=== PATIENT | male | born 1975 | race Caucasian/White ===

== ENCOUNTER 2020-07-15 08:05 | Emergency (ER) | payer OTHER, SELFPAY ==
[2020-07-15 08:10] VITALS: BP 166/96; PULSE 75; RESP 22; TEMP 36.3; O2SAT 97; BMI 38.6
--- NOTE | 2020-07-15 08:23 | ED_ITS ---
HPI - Back Pain/Injury General: Chief Complaint: Back Pain/Injury Stated Complaint: LOWER BACK PAIN Time Seen by Provider: 07/15/20 08:06 History of Present Illness: HPI Narrative: 45-year-old male presents to clinic back pain that began over the last few days or wax and wane. Pain radiates into the left leg down to the toes. This only happens intermittently and is not present at the time of exam. MD elicited complaint: back pain Pertinent past history: prior back pain Onset (ago): day(s) Timing: intermittent and progressively worsening Severity: moderate Similar Symptoms Previously: Yes Quality: sharp Location: lumbar spine Radiation: left upper leg and left leg below the knee Exacerbating factors: movement and walking Relieving factors: immobilization and supine Associated symptoms: Reports numbness, tingling/numbness/burning and weakness; Deny abdominal pain, arthralgias, chills, change in bowel habits, difficulty walking, dysuria, fatigue, fecal incontinence, fever(s), hematuria, myalgias, nausea, syncope, urinary frequency, urinary urgency or vomiting Treatments prior to arrival: heat therapy and NSAIDS Review of Systems Const: Denies: fever(s), chills or fatigue ENMT: Denies: throat pain, ear or mastoid pain, nasal discharge or nasal congestion Card: Denies: syncope Resp: Denies: dyspnea, productive cough or non-productive cough GI: Denies: abdominal pain, nausea, vomiting, fecal incontinence or change in bowel habits : Denies: dysuria, urinary urgency or hematuria Skin/Breast: Denies: rash or pruritus Neuro: Denies: difficulty walking Physical Exam Const: COMMON NORMALS: no acute distress GENERAL APPEARANCE: cooperative and comfortable HENMT: COMMON NORMALS: normocephalic, atraumatic and hearing grossly normal bilaterally HEAD & SCALP: normocephalic and atraumatic Neck/C-Spine: COMMON NORMALS: no JVD Resp: COMMON NORMALS: normal respiratory effort, No retractions, No use of accessory muscles and clear to auscultation bilaterally AUSCULTATION: clear to auscultation bilaterally Cardio: COMMON NORMALS: no JVD, regular rate, regular rhythm and No murmurs present (Cardio) RATE: regular rate RHYTHM: regular rhythm GI: COMMON NORMALS: Soft to palpation and No hepatosplenomegaly present AUSCULTATION: Yes normoactive bowel sounds PALPATION: Yes Soft to palpation, No Tenderness to palpation present (GI), No Guarding due to palpation present (GI) and Yes No hepatosplenomegaly present Extremity: COMMON NORMALS: normal to inspection, capillary refill normal, no clubbing, cyanosis or edema, no calf tenderness and no pedal edema Neuro: OTHER: Straight leg raising test negative. Deep tendon reflexes slightly increased on the left leg compared to the right +3-4 on the left +24 on the right at the patellar tendons. Skin: COMMON NORMALS: no rashes or lesions noted GENERAL SKIN EXAM: no rashes or lesions noted Course Vital Signs: Vital signs: Vital Signs Temperature 97.3 F L 07/15/20 08:10 Pulse Rate 75 07/15/20 08:10 Respiratory Rate 22 H 07/15/20 08:10 Blood Pressure 166/96 07/15/20 08:10 Pulse Oximetry 97 07/15/20 08:10 MDM - Back Pain/Injury MDM Narrative: Medical decision making narrative: Atraumatic low back pain with intermittent radicular leg symptoms. Suspect sciatica. Patient given muscle relaxer and anti-inflammatory here discharged home with same follow-up with primary care doctor if not improving. Discharge Plan Discharge Patient Disposition: Home Clinical Impression: Strain of lumbar region Condition: Stable Prescriptions: New diclofenac sodium 75 mg tablet,delayed release (DR/EC) 75 mg PO Q12H PRN (Reason: pain) Qty: 20 RF: 0 tizanidine 4 mg capsule 4 mg PO Q6H PRN (Reason: muscle spasticity) Qty: 60 RF: 0 Discharge Orders: Discharge ED (Routine); Ordered 07/15/20 Ordered By: Nathan Clark Referrals: Baljeet Jean Baptiste MD [Primary Care Provider] - Discharge Diet: Usual diet Discharge Activity: Increase activity as tolerated Patient Instructions: Opioid Safety Activity Restrictions/Additional Instructions: If not improving you can return to the emergency room or follow-up with your primary care doctor for evaluation for physical therapy or potentially advanced imaging. 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
[2020-07-15] MEDS: orphenadrine 30 mg/mL Inj 2 mL 60 MG IM (08:34)
[2020-07-15 08:39] VITALS: BP 144/97; PULSE 91; RESP 20; O2SAT 99
== END 2020-07-15 08:39 | disposition home or self-care (01) ==
PROVIDERS: Emergency Provider Family Medicine; PCP Family Medicine
DX: S39.012A Strain of muscle, fascia and tendon of lower back, initial encounter (principal); X58.XXXA Exposure to other specified factors, initial encounter
CPT/HCPCS: 96372; 99283; J2360

== ENCOUNTER 2020-07-18 11:29 | Outpatient (CLI) | payer OTHER, SELFPAY ==
--- NOTE | 2020-07-18 11:39 | XR_ITS ---
WS: [id number] Lumbar spine, 3 views, 07/18/2020 Clinical Data: LUMBER RADICULOPATHY Comparison: None. Findings: No compression fractures or subluxation is seen. No disc space narrowing is seen. The transverse proc esses and SI joints are normal. XR/XR lumbar spine 2-3V* [id number] Impression: Negative lumbar spine.
== END 2020-07-18 11:30 | disposition home or self-care (01) ==
LOC: RAD 11:31
PROVIDERS: PCP Family Medicine; Visit Provider Family Medicine
DX: M54.16 Radiculopathy, lumbar region (principal)
CPT/HCPCS: 72100

== ENCOUNTER 2020-10-02 14:04 | Outpatient (CLI) | payer OTHER, SELFPAY ==
--- NOTE | 2020-10-02 14:29 | USCV_ITS ---
Manjinder Mondragon Age: 45 Gender: M : 1975 Exam Date: 10/02/2020 14:50 Ordering Phys: Baljeet Jean Baptiste MD Technologist: Jasmine Tavares Exam Location: [facility] [place] Indication: LLE PAIN, SWELLING HISTORY: Left lower extremity swelling and pain, new onset. No history DVT or trauma PROCEDURES: On the left side, the common femoral, superficial femoral, profunda femoral, popliteal, posterior tibial, greater saphenous veins, and the peroneal trunk were identified and interrogated in the standard fashion. . FINDINGS: Thrombus seen in left mid FV to popliteal vein, peroneal and extending into calf. Pop and peroneal appear occlusive. mid and distal FV have reduced flow. Left GSV, CFV, profunda, below knee GSV, PTVs appear to compress normally. CONCLUSIONS There is evidence of acute left lower extremity deep venous thrombosis. Dr. Jean Baptiste contacted at time of exam. Dr. Conchita Lopez DO (Electronically Signed) Final Date: 02 Oct 2020 15:47 S
== END 2020-10-02 14:05 | disposition home or self-care (01) ==
PROVIDERS: PCP Family Medicine; Visit Provider Family Medicine
DX: R60.0 Localized edema (principal); M79.605 Pain in left leg
CPT/HCPCS: 93971

== ENCOUNTER 2023-04-27 01:53 | Observation (INO) | payer SELFPAY ==
[2023-04-27] VITALS (18 sets, daily range): BP systolic 128–169; BP diastolic 76–98; PULSE 100–121; RESP 12–23; TEMP 36.1–36.7; O2SAT 94–98; BMI 38.6; BMI 38.3
[2023-04-27 03:13] LABS: Basophils # 0.1 10^3/uL (0.0-0.1); Basophils % 0.8 %; Eosinophils # 0.1 10^3/uL (0.0-0.8); Eosinophils % 0.7 %; Hematocrit 43.9 % (37-53); Lymphocytes # 1.5 10^3/uL (0.8-4.8); Lymphocytes % 13.7 %; Mean Corpuscular HGB Conc 33.5 g/dL (30-55); Mean Corpuscular Hemoglobin 30.2 pg (27-33); Mean Corpuscular Volume 90.3 fl (82-101); Mean Platelet Volume 8.9 fL (7.4-10.4); Monocytes # 0.7 10^3/uL (0.2-0.9); Monocytes % 6.6 %; Neutrophils # 8.75 10^3/uL (1.8-7.7); Neutrophils % 77.5 %; Nucleated Red Blood Cells % 0 %; Platelet Count 285 10^3/cmm (157-399); Red Blood Count 4.86 10^6/uL (3.85-5.65); Red Cell Distribution Width 13.5 % (12.1-15.1); White Blood Count 11.28 10^3/uL (3.29-11.43)
--- NOTE | 2023-04-27 03:16 | ECG_ITS ---
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 Measurements Intervals [place] Rate: 91 P: 65 CO: 112 QRS: 64 QRSD: 101 T: 69 QT: 365 QTc: 451 Interpretive Statements SINUS RHYTHM WITH SHORT CO INTERVAL No previous ECG available for comparison Electronically Signed On 04-27-2023 14:41:47 CHAR CONVEYOR TENDER by Alex Chatman M.D. [email or web address]
[2023-04-27 03:27] LABS: INR 1.11 (0.8-1.2)
[2023-04-27 03:28] LABS: Partial Thromboplastin Time 25.8 SECONDS (23.9-36.7)
[2023-04-27 03:56] LABS: Alanine Aminotransferase 32 U/L (0-41); Albumin Level 3.9 g/dL (3.5-5.2); Alkaline Phosphatase 73 U/L (40-130); Anion Gap 14.1 (5-19); Aspartate Amino Transferase 30 U/L (0-40); Blood Urea Nitrogen 22 mg/dL (6-20); Calcium 9.1 mg/dL (8.5-10.5); Carbon Dioxide 26 mmol/L (22-29); Chloride 97 mmol/L (98-107); Globulin 2.9 g/dL (1.3-4.6); Glomerular Filtration Rate 80.1 mL/min (90-130); Glucose 132 mg/dL (65-115); Osmolality Calculated 281 mOsm/kg (285-295); Potassium 4.1 mmol/L (3.5-5.1); Sodium 133 mmol/L (136-145); Total Bilirubin 0.5 mg/dL (0.15-1.2); Total Protein 6.8 g/dL (6.6-8.7)
--- NOTE | 2023-04-27 05:36 | CTR_ITS ---
PROCEDURE INFORMATION: Exam: CT Abdomen And Pelvis With Contrast Exam date and time: 04/27/2023 5:42 AM Age: 48 years old Clinical indication: Vomiting; Patient HX: Coffee ground emesis, PT denies any pain; Additional info: Abd pain TECHNIQUE: Imaging protocol: Computed tomography of the abdomen and pelvis with contrast. Radiation optimization: All CT scans at this facility use at least one of these dose optimization techniques: automated exposure control; mA and/or kV adjustment per patient size (includes targeted exams where dose is matched to clinical indication); or iterative reconstruction. Contrast material: OMNI 350; Contrast volume: 100 ml; Contrast route: INTRAVENOUS (IV); REPORTING DATA: Count of CT and Cardiac NM exams in prior 12 months: This patient has received 0 known CTs and 0 known cardiac nuclear medicine studies in the 12 months prior to the current study. COMPARISON: CR XR lumbar spine 2-3V* [id number] 07/18/2020 11:54 AM RADIATION DOSE METRICS: Total DLP (mGy-cm): 1276.43 FINDINGS: Liver: Marked hepatic steatosis. 23 cm hepatomegaly. Gallbladder and bile ducts: Normal. No calcified stones. No ductal dilation. Pancreas: Normal. No ductal dilation. Spleen: Normal. No splenomegaly. Adrenal glands: Normal. No mass. Kidneys and ureters: Normal. No hydronephrosis. Stomach and bowel: Unremarkable. No obstruction. No mucosal thickening. Appendix: No evidence of appendicitis. Intraperitoneal space: Unremarkable. No free air. No significant fluid collection. Vasculature: Unremarkable. No abdominal aortic aneurysm. Lymph nodes: Unremarkable. No enlarged lymph nodes. Urinary bladder: Unremarkable as visualized. Reproductive: Unremarkable as visualized. Bones/joints: Unremarkable. No acute fracture. Soft tissues: Unremarkable. CT/CT abdomen pelvis w con* [id number] IMPRESSION: Hepatic steatosis. Mild hepatomegaly.
--- NOTE | 2023-04-27 05:46 | ED_ITS ---
Documented by User: Torrey Card MD 05/19/23 07:54 HPI - GI Bleed 2 General: Chief complaint: GI Bleed Stated complaint: vomiting blood Time Seen by Provider: 04/27/23 03:01 History of Present Illness: 48-year-old male presents emergency depa rtment with complaints that he had a episode of dark brown/black coffee-ground emesis earlier at approximately 1700 yesterday. Patient reports anytime that he has been eating or drinking anything he has been having vomiting since that time. He states he does drink 8-10 beers per day and his last drink was approximately 3 PM yesterday. He states he does take a blood thinner for history of blood clots and pulmonary embolism. He denies shortness of breath dizziness or lightheaded feeling. Associated symptoms: Reports nausea and vomiting Review of Systems 2 General: Reports: 10 or more systems reviewed and unremarkable except in HPI and below GI: Reports: nausea, vomiting and coffee ground emesis PFSH ED 2 PFSH: Medical History (Updated 04/30/23 @ 00:00 by GABY Worthington) Hypothyroidism Depression with anxiety Hypertriglyceridemia Alcohol abuse Blood clot in leg Hx pulmonary embolism Family History Other Diabetes mellitus, type 2 Social History (Updated 04/27/23 @ 09:31 by Alvaro Bush MD) Smoking and tobacco/nicotine status: never used tobacco/nicotine Alcohol intake: current Physical Exam 2 Narrative: EXAM NARRATIVE: Constitutional: the patient appears well nourished and with normal development. Vital signs reviewed as documented. HENMT: Normocephalic, atraumatic. Extermal ears with normal appearance without drainage. Nose without drainage, normal appearance. Mucus membranes moist. Neck is supple, No jugular venous distension, trachea is midline, no appreciable carotid bruits. No lymphadenopathy. No meningeal signs. Flexion, extension and lateral rotation is without pain. Eyes: Pupils are equal, round, reactive to light and accommodation. No scleral icterus. Extra-ocular movement are intact. Thorax is symmetrical and with equal rise and fall with respirations. Resp: Lungs are clear to auscultation. No wheezes, rales, crackles or ronchi at present. Cardio: Regular rate and rhythm. Positive S1, S2. No appreciable murmurs, rubs or gallops. GI: Abdominal exam reveals normal bowel sounds to all quadrants. No organomegaly. No obvious palpable masses noted. No hepatomegally appreciated. Soft, nontender to palpation. Extremity: Extremities are non-edematous and both femoral and pedal pulses are 2+ and equal bilaterally. Moves all extremities well, sensation in all extremities. Neuro: Alert and oriented x4, person, place, time and situation. Cranial nerves II through XII are grossly intact, there is no focal neurological deficits that I can appreciate at present. Motor strength in the upper and lower extremities are equal and bilateral 5/5. Psych: Cooperative, calm, normal thought process, appropriate judgment. Skin: No lesions, rashes. No gross abnormalities noted. Back: Symmetrical, no obvious deformity, No CVA tenderness Course 2 Vital Signs: Vital signs: Vital Signs Temperature 98.1 F 04/29/23 14:15 Pulse Rate 91 04/29/23 14:15 Respiratory Rate 18 04/29/23 14:15 Blood Pressure 122/80 04/29/23 14:15 Pulse Oximetry 100 04/29/23 14:15 Oxygen Delivery Me thod Room Air 04/29/23 12:02 Oxygen Flow Rate 2 04/29/23 11:52 MDM - GI Bleed Medical Decision Making Physical exam completed and documented, I will obtain laboratory evaluation to include a CBC, CMP, lipase, urinalysis, and a CT scan of the patient's abdomen pelvis to evaluate for possible differential diagnosis of bowel obstruction, incarcerated hernia, abdominal wall strain, abdominal wall hematoma, constipation. I will provide the patient IV access and IV fluid as well as a CT scan abdomen pelvis with contrast for evaluation for possible colitis, acute appendicitis, diverticulitis. Transfer of care to Dr. Clark we are currently awaiting CT scan results vital signs are stable at present. I did advise the patient that Dr. Clark would be the physician taking over his care. Medical Records I reviewed the patient's medical records. Lab Data I reviewed the patient's lab results. 04/29/23 05:42 04/29/23 05:42 Radiology Impressions Abdomen/Pelvis CT 04/27/23 05:36 IMPRESSION: Hepatic steatosis. Mild hepatomegaly. Laboratory Results WBC 11.28 10^3/uL (3.29-11.43) 04/27/23 03:08 RBC 4.86 10^6/uL (3.85-5.65) 04/27/23 03:08 Hgb 14.70 g/dL (11.27-16.99) 04/27/23 03:08 Hct 43.9 % (37-53) 04/27/23 03:08 MCV 90.3 fl (82-101) 04/27/23 03:08 MCH 30.2 pg (27-33) 04/27/23 03:08 MCHC 33.5 g/dL (30-55) 04/27/23 03:08 RDW 13.5 % (12.1-15.1) 04/27/23 03:08 Plt Count 285 10^3/cmm (157-399) 04/27/23 03:08 MPV 8.9 fL (7.4-10.4) 04/27/23 03:08 Neut % (Auto) 77.5 % 04/27/23 03:08 Lymph % (Auto) 13.7 % 04/27/23 03:08 Cooke % (Auto) 6.6 % 04/27/23 03:08 Eos % (Auto) 0.7 % 04/27/23 03:08 Baso % (Auto) 0.8 % 04/27/23 03:08 Neut # (Auto) 8.75 10^3/uL (1.8-7.7) H 04/27/23 03:08 Lymph # (Auto) 1.5 10^3/uL (0.8-4.8) 04/27/23 03:08 Cooke # (Auto) 0.7 10^3/uL (0.2-0.9) 04/27/23 03:08 Eos # (Auto) 0.1 10^3/uL (0.0-0.8) 04/27/23 03:08 Baso # (Auto) 0.1 10^3/uL (0.0-0.1) 04/27/23 03:08 Nucleated RBC % (auto) 0 % 04/27/23 03:08 Nucleated RBCs # 0.0 /100WBC 04/27/23 03:08 PT 14.70 SECONDS (12.1-14.9) 04/27/23 03:08 INR 1.11 (0.8-1.2) 04/27/23 03:08 APTT 25.8 SECONDS (23.9-36.7) 04/27/23 03:08 Sodium 133 mmol/L (136-145) L 04/27/23 03:35 Potassium 4.1 mmol/L (3.5-5.1) 04/27/23 03:35 Chloride 97 mmol/L (98-107) L 04/27/23 03:35 Carbon Dioxide 26 mmol/L (22-29) 04/27/23 03:35 Anion Gap 14.1 (5-19) 04/27/23 03:35 BUN 22 mg/dL (6-20) H 04/27/23 03:35 Creatinine 1.0 mg/dL (0.7-1.2) 04/27/23 03:35 GFR Calculation 80.1 mL/min (90-130) L 04/27/23 03:35 Glucose 132 mg/dL (65-115) H 04/27/23 03:35 Calculated Osmolality 281 mOsm/kg (285-295) L 04/27/23 03:35 Calcium 9.1 mg/dL (8.5-10.5) 04/27/23 03:35 Total Bilirubin 0.5 mg/dL (0.15-1.2) 04/27/23 03:35 AST 30 U/L (0-40) 04/27/23 03:35 ALT 32 U/L (0-41) 04/27/23 03:35 Alkaline Phosphatase 73 U/L (40-130) 04/27/23 03:35 Total Protein 6.8 g/dL (6.6-8.7) 04/27/23 03:35 Albumin 3.9 g/dL (3.5-5.2) 04/27/23 03:35 Globulin 2.9 g/dL (1.3-4.6) 04/27/23 03:35 TSH 4.60 uIU/mL (0.27-4.20) H 04/27/23 03:35 Discharge Plan Discharge Patient Disposition: Placed in Observation Admit Provider: Tristin Higginbotham Clinical Impression: Upper gastrointestinal hemorrhage, Hx pulmonary embolism, Alcohol abuse Discharge Diet: Usual diet Discharge Activity: Increase activity as tolerated Sign Out Sign Out Data: Patient Sign Out occurred on 04/27/23 at 06:03. Patient's care was discussed, and care was transferred from Torrey Card MD to Nathan Clark DO. Coding Level of Care Code ED Premium Cancellation Clerk for Chg Fwd Documented by User: Nathan Clark DO 04/27/23 06:46 HPI - GI Bleed 2 General: Chief complaint: GI Bleed Stated complaint: vomiting blood Time Seen by Provider: 04/27/23 03:01 [facility] ED 2 [facility]: Medical History (Updated 04/30/23 @ 00:00 by GABY Worthington) Hypothyroidism Depression with anxiety Hypertriglyceridemia Alcohol abuse Blood clot in leg Hx pulmonary embolism Family History Other Diabetes mellitus, type 2 Social History (Updated 04/27/23 @ 09:31 by Alvaro Bush MD) Smoking and tobacco/nicotine status: never used tobacco/nicotine Alcohol intake: current Course 2 Vital Signs: Vital signs: Vital Signs Temperature 98.1 F 04/29/23 14:15 Pulse Rate 91 04/29/23 14:15 Respiratory Rate 18 04/29/23 14:15 Blood Pressure 122/80 04/29/23 14:15 Pulse Oximetry 100 04/29/23 14:15 Oxygen Delivery Me thod Room Air 04/29/23 12:02 Oxygen Flow Rate 2 04/29/23 11:52 MDM - GI Bleed Medical Decision Making Physical exam completed and documented, I will obtain laboratory evaluation to include a CBC, CMP, lipase, urinalysis, and a CT scan of the patient's abdomen pelvis to evaluate for possible differential diagnosis of bowel obstruction, incarcerated hernia, abdominal wall strain, abdominal wall hematoma, constipation. I will provide the patient IV access and IV fluid as well as a CT scan abdomen pelvis with contrast for evaluation for possible colitis, acute appendicitis, diverticulitis. Transfer of care to Dr. Clark we are currently awaiting CT scan results vital signs are stable at present. I did advise the patient that Dr. Clark would be the physician taking over his care. 04/27/2023 6:45 AM Care assumed at change of shift. The CT reviewed no significant findings hemoglobin stable patient slightly tachycardic and BUN slightly elevated has not had any further episodes of coffee-ground emesis and has not had any hematemesis throughout. Patient be given IV Protonix and banana bag started on the [facility] protocol hold Eliquis. In talking to the patient is precipitating cause of DVT PE 3 years ago was unknown. Discussed with hospitalist will place on observation consult general surgery for EGD. Patient has not had previous upper GI's or endoscopies. No history of upper GI bleed no known history of esophageal varices. Lab Data 04/29/23 05:42 04/29/23 05:42 Radiology Impressions Abdomen/Pelvis CT 04/27/23 05:36 IMPRESSION: Hepatic steatosis. Mild hepatomegaly. Laboratory Results WBC 11.28 10^3/uL (3.29-11.43) 04/27/23 03:08 RBC 4.86 10^6/uL (3.85-5.65) 04/27/23 03:08 Hgb 14.70 g/dL (11.27-16.99) 04/27/23 03:08 Hct 43.9 % (37-53) 04/27/23 03:08 MCV 90.3 fl (82-101) 04/27/23 03:08 MCH 30.2 pg (27-33) 04/27/23 03:08 MCHC 33.5 g/dL (30-55) 04/27/23 03:08 RDW 13.5 % (12.1-15.1) 04/27/23 03:08 Plt Count 285 10^3/cmm (157-399) 04/27/23 03:08 MPV 8.9 fL (7.4-10.4) 04/27/23 03:08 Neut % (Auto) 77.5 % 04/27/23 03:08 Lymph % (Auto) 13.7 % 04/27/23 03:08 Cooke % (Auto) 6.6 % 04/27/23 03:08 Eos % (Auto) 0.7 % 04/27/23 03:08 Baso % (Auto) 0.8 % 04/27/23 03:08 Neut # (Auto) 8.75 10^3/uL (1.8-7.7) H 04/27/23 03:08 Lymph # (Auto) 1.5 10^3/uL (0.8-4.8) 04/27/23 03:08 Cooke # (Auto) 0.7 10^3/uL (0.2-0.9) 04/27/23 03:08 Eos # (Auto) 0.1 10^3/uL (0.0-0.8) 04/27/23 03:08 Baso # (Auto) 0.1 10^3/uL (0.0-0.1) 04/27/23 03:08 Nucleated RBC % (auto) 0 % 04/27/23 03:08 Nucleated RBCs # 0.0 /100WBC 04/27/23 03:08 PT 14.70 SECONDS (12.1-14.9) 04/27/23 03:08 INR 1.11 (0.8-1.2) 04/27/23 03:08 APTT 25.8 SECONDS (23.9-36.7) 04/27/23 03:08 Sodium 133 mmol/L (136-145) L 04/27/23 03:35 Potassium 4.1 mmol/L (3.5-5.1) 04/27/23 03:35 Chloride 97 mmol/L (98-107) L 04/27/23 03:35 Carbon Dioxide 26 mmol/L (22-29) 04/27/23 03:35 Anion Gap 14.1 (5-19) 04/27/23 03:35 BUN 22 mg/dL (6-20) H 04/27/23 03:35 Creatinine 1.0 mg/dL (0.7-1.2) 04/27/23 03:35 GFR Calculation 80.1 mL/min (90-130) L 04/27/23 03:35 Glucose 132 mg/dL (65-115) H 04/27/23 03:35 Calculated Osmolality 281 mOsm/kg (285-295) L 04/27/23 03:35 Calcium 9.1 mg/dL (8.5-10.5) 04/27/23 03:35 Total Bilirubin 0.5 mg/dL (0.15-1.2) 04/27/23 03:35 AST 30 U/L (0-40) 04/27/23 03:35 ALT 32 U/L (0-41) 04/27/23 03:35 Alkaline Phosphatase 73 U/L (40-130) 04/27/23 03:35 Total Protein 6.8 g/dL (6.6-8.7) 04/27/23 03:35 Albumin 3.9 g/dL (3.5-5.2) 04/27/23 03:35 Globulin 2.9 g/dL (1.3-4.6) 04/27/23 03:35 TSH 4.60 uIU/mL (0.27-4.20) H 04/27/23 03:35 All radiology interpretation(s) finalized by discharge Discharge Plan Discharge Patient Disposition: Placed in Observation Admit Provider: Tristin Higginbotham Clinical Impression: Upper gastrointestinal hemorrhage, Hx pulmonary embolism, Alcohol abuse Discharge Diet: Usual diet Discharge Activity: Increase activity as tolerated Sign Out Sign Out Data: Patient Sign Out occurred on 04/27/23 at 06:03. Patient's care was discussed, and care was transferred from Torrey Card MD to Nathan Clark DO. Coding Level of Care Code ED Premium Cancellation Clerk for Myles Wright
[2023-04-27] MEDS: iohexol 350 mg/mL 500 mL Btl (per mL) IV (05:47)
[2023-04-27] MEDS: pantoprazole 40 mg SDV 80 MG IVP (06:58)
[2023-04-27] MEDS: folic acid 1 MG, multivitamin inj 10 ML, thiamine 100 MG in sodium chloride 0.9% 1,000 ML 252.8 MG IV (06:59)
--- NOTE | 2023-04-27 09:09 | P.CONIM_ITS ---
Providers/Reason For Consult 2 Consulting Physician/Specialty*: George/emergency room physician Reason for Consult*: Upper GI hemorrhage Requesting Physician: George Attending Physician: Tristin Higginbotham MD Primary Care Provider: SHAILA Kemp History of Present Illness History of Present Illness Manjinder Mondragon is a 48 year old male Who presents with coffee-ground emesis. The patient had a couple episodes of emesis where he vomited food and bile this was followed by coffee-ground emesis. The episode was not described as violent. The patient's had no evidence of this previously. The patient states that he drinks 6-8 beers per day. He has been doing this for more than 2 decades. The patient states that he is never had the shakes or alcohol withdrawal symptoms. The vomiting started greater than 24 hours ago. The patient is not anything to eat or drink within the last 8 hours. Although the patient did say that he had a small sip of water. To complicate matters the patient has a history of DVT. The patient also had a pulmonary embolism. The pulmonary embolism was not provoked. The exact etiology of this pulmonary embolism is unclear. The patient's been on apixaban since then. The patient denies dizziness. The patient denies constipation or diarrhea. The patient had no fever or chills. Review of Systems 2 General: Reports: 10 or more systems reviewed and unremarkable except in HPI and below Medications/Allergies Home Medications Medication Instructions Recorded Confirmed Last Taken Type apixaban 5 mg tablet (Eliquis) 5 mg PO BID #60 tabs 01/29/23 04/27/23 04/26/23 Rx cholecalciferol (vitamin D3) 25 25 mcg PO QAM 04/27/23 04/27/23 04/26/23 History mcg (1,000 unit) chewable tablet (Vitamin D3) duloxetine 30 mg capsule,delayed 30 mg PO QAM 04/27/23 04/27/23 04/26/23 History release fenofibrate nanocrystallized 48 mg 48 mg PO QPM 04/27/23 04/27/23 04/26/23 History tablet levothyroxine 25 mcg tablet 25 mcg PO QAM 04/27/23 04/27/23 04/26/23 History ropinirole 2 mg tablet 2 mg PO QPM 04/27/23 04/27/23 04/26/23 History Allergies Allergy/AdvReac Type Severity Reaction Status Date / Time enoxaparin [From Lovenox] Allergy Unknown Verified 04/27/23 03:58 Current Medications Generic Name Dose Route Start Last Admin Trade Name Rose PRN Reason Stop Dose Admin Folic Acid 1 mg/ Multivitamins 1,011.2 mls @ 252.8 mls/hr 04/27/23 06:33 04/27/23 06:59 10 ml/ Thiamine HCl 100 mg/ IV 04/27/23 10:32 252.8 mls/hr Sodium Chloride ONCE ONE Administration PFSH Acute 2 PFSH: Medical History Blood clot in leg Hx pulmonary embolism Social History Smoking and tobacco/nicotine status: never used tobacco/nicotine Vitals/I&O/Wt Last Vital Signs Temp 97.9 F 04/27/23 02:48 Pulse 119 H 04/27/23 07:43 Resp 20 H 04/27/23 07:43 BP 130/84 04/27/23 07:43 Pulse Ox 96 04/27/23 07:43 O2 Del Method Room Air 04/27/23 08:11 Weight last 48 hrs Weight 283 lb Weight 285 lb Physical Exam 2 Narrative: Generally: Morbidly obese male. Appears to be in no acute distress HEENT: Normocephalic atraumatic, pupils equal round reactive to light Neck: Is free range of motion. There is no masses that I can appreciate. The patient's trachea is midline. Lungs: Clear to auscultation. Chest: Nontender. The patient sternum is stable. There is no palpable deformities in the chest wall. Heart: Regular rate and rhythm without murmurs. There is no S3 or S4. There is no rubs clicks or JVD noted. Abdomen: Morbidly obese, soft, nontender. There is no masses that I can appreciate. There is no hepatosplenomegaly. There are no hernias that I can appreciate. Pelvis: Is both stable to both AP and medial compression Extremities: There is no obvious deformities or point tenderness suggestive of fracture. The patient has no clubbing cyanosis or edema. Neurologic: The patient is awake, alert, oriented x 3. The patient's Alysia Coma Scale is 15. The patient moves all 4 extremities without difficulty. The patient sensations intact to light touch throughout. Data 04/27/23 03:08 04/27/23 03:35 Attestation for Other Data: I personally reviewed and interpreted the following: (Labs and x-rays.) A&P Assessment and plan (1) Upper gastrointestinal hemorrhage: This patient is admitted for an upper GI hemorrhage. The patient's hemoglobin is stable. The patient's vital signs are stable. Will schedule patient for an EGD. The risk and benefits of this procedure been explained to the patient. The patient seems to understand the risk and benefits and would like to proceed. The consents been placed on the chart. Coding Level of Care Code 64053 Diagnoses Upper gastrointestinal hemorrhage K92.2
--- NOTE | 2023-04-27 09:28 | P.HP_ITS ---
Providers/Chief Complaint 2 Admitting Physician: Tristin Higginbotham MD Primary Care Provider: SHAILA Kemp Chief Complaint: vomiting blood History of Present Illness Manjinder Mondragon is a 48 year old male who reports he started vomiting yesterday afternoon around 4 5 PM. He reports some abdominal discomfort in his upper abdomen. He reports the first several emesis did not demonstrate any dark material, but subsequent emesis demonstrated dark coffee-ground material. He denies any bright red blood. He has had no melena. He reports he feels better now and does not have abdominal pain. No history of fever. Denies any significant anti-inflammatory use. Does report he drinks 6-8 beers a day. Review of Systems 2 General: Reports: 10 or more systems reviewed and unremarkable except in HPI and below Card: Denies: chest pain Resp: Denies: dyspnea GI: Reports: abdominal pain, nausea, vomiting and coffee ground emesis; Denies: hematemesis, hematochezia or melena Medications/Allergies Home Medications Medication Instructions Recorded Confirmed Last Taken Type apixaban 5 mg tablet (Eliquis) 5 mg PO BID #60 tabs 01/29/23 04/27/23 04/26/23 Rx cholecalciferol (vitamin D3) 25 25 mcg PO QAM 04/27/23 04/27/23 04/26/23 History mcg (1,000 unit) chewable tablet (Vitamin D3) duloxetine 30 mg capsule,delayed 30 mg PO QAM 04/27/23 04/27/23 04/26/23 History release fenofibrate nanocrystallized 48 mg 48 mg PO QPM 04/27/23 04/27/23 04/26/23 History tablet levothyroxine 25 mcg tablet 25 mcg PO QAM 04/27/23 04/27/23 04/26/23 History ropinirole 2 mg tablet 2 mg PO QPM 04/27/23 04/27/23 04/26/23 History Allergies Allergy/AdvReac Type Severity Reaction Status Date / Time enoxaparin [From Lovenox] Allergy Unknown Verified 04/27/23 03:58 PFSH Acute 2 PFSH: Medical History (Updated 04/27/23 @ 09:31 by Alvaro Bush MD) Hypothyroidism Depression with anxiety Hypertriglyceridemia Alcohol abuse Blood clot in leg Hx pulmonary embolism Family History Other Diabetes mellitus, type 2 Social History (Updated 04/27/23 @ 09:31 by Alvaro Bush MD) Smoking and tobacco/nicotine status: never used tobacco/nicotine Alcohol intake: current Vitals/I&O/Wt Last Vital Signs Temp 97.9 F 04/27/23 02:48 Pulse 119 H 04/27/23 07:43 Resp 20 H 04/27/23 07:43 BP 130/84 04/27/23 07:43 Pulse Ox 96 04/27/23 07:43 O2 Del Method Room Air 04/27/23 08:11 Weight last 48 hrs Weight 128.367 kg Weight 129.274 kg Physical Exam 2 Narrative: General exam is a white male, no distress. Heart rate is noted to be somewhat high. HEENT: Atraumatic normocephalic. Oropharynx clear Neck is supple no lymphadenopathy thyromegaly Cardiovascular regular rate and rhythm, no murmur Lungs clear no wheezing or crackles Abdomen is soft currently. No significant tenderness. No obvious organomegaly exams deferred Extremities no cyanosis clubbing edema Skin no rash Neuro no obvious focal deficits Data 04/27/23 03:08 04/27/23 03:35 Other Labs: INR is normal LFTs are normal Albumin, calcium normal Lipase not done. However, he is not currently having any abdominal pain. CT abdomen and pelvis demonstrates hepatic steatosis and hepatomegaly EKG demonstrates sinus rhythm with a rate around 90, normal axis, no acute changes A&P Assessment and plan (1) Upper gastrointestinal hemorrhage: Patient presents with history of coffee-ground emesis, multiple times at home. Differential includes alcoholic gastritis, ulcer, Sherry-Damian tear, less likely varices. Repeat hemoglobin later today Surgery consult for EGD Protonix 40 mg IV every 12 hours Nausea control N.p.o. until EGD Avoid all NSAIDs Counseled on stopping all alcohol Hydration (2) Alcohol abuse: I think it is likely the patient will have alcohol withdrawal Counseled on stopping all alcohol [facility] protocol Plan Hypothyroidism, check TSH other medical problems as outlined in past medical history Full code SCD's for DVT proph, no anticoag secondary to GI bleed Attestations 2 Medical Necessity Statement*: Will require less than 2 midnight stay for evaluation and treatment of upper GI bleeding Coding Level of Care Code Acute Code for Chg Fwd Diagnoses Upper gastrointestinal hemorrhage K92.2 Alcohol abuse F10.10
[2023-04-27 09:42] LABS: Basophils # 0.1 10^3/uL (0.0-0.1); Basophils % 0.5 %; Eosinophils % 0.1 %; Hematocrit 38.2 % (37-53); Lymphocytes # 2.8 10^3/uL (0.8-4.8); Lymphocytes % 17.9 %; Mean Corpuscular Hemoglobin 30.7 pg (27-33); Mean Corpuscular Volume 92.9 fl (82-101); Mean Platelet Volume 9.2 fL (7.4-10.4); Monocytes # 1.2 10^3/uL (0.2-0.9); Monocytes % 7.9 %; Neutrophils # 11.31 10^3/uL (1.8-7.7); Neutrophils % 72.4 %; Nucleated Red Blood Cells % 0 %; Platelet Count 328 10^3/cmm (157-399); Red Blood Count 4.11 10^6/uL (3.85-5.65); Red Cell Distribution Width 13.5 % (12.1-15.1); White Blood Count 15.61 10^3/uL (3.29-11.43)
--- NOTE | 2023-04-27 09:44 | P.ANESASSM_ITS ---
Pre-Anesthetic Assessment Height/Weight: Height 1.83 m Weight 128.367 kg Temp Pulse Resp BP Pulse Ox O2 Del Method 97.9 F 119 H 20 H 130/84 96 Room Air 04/27/23 02:48 04/27/23 07:43 04/27/23 07:43 04/27/23 07:43 04/27/23 07:43 04/27/23 08:11 Preop Diagnosis: upper GI hemorrhage Operation Date: 04/27/23 10:00 Proposed Procedures p EGD(Not Applicable) - Francisco Banerjee MD Familial anesthetic complications: none Was Beta Asim taken within 24 hours: N/A Was Clonidine taken within 24 hours: N/A Social Alcohol (abuse) and Tobacco Exam alert, oriented x 3, clear to auscultation bilaterally and regular rate & rhythm Airway Submandibular: within normal limits Cervical ROM: within normal limits Mallampati: Class III Dentition: full Pulmonary None reported CV/HEM Deep Vein Thrombosis (history) None reported Hepatic None reported GI Gastroesophageal Reflux Disease Metabolic Hyperlipidemia, Morbid Obesity and Thyroid Disease [facility] [place], [place] None reported Neuropsych Anxiety Anesthetic Plan ASA status: 3 Anesthesia: General Medications/Allergies Home Medications Medication Instructions Recorded Confirmed Last Taken Type apixaban 5 mg tablet (Eliquis) 5 mg PO BID #60 tabs 01/29/23 04/27/23 04/26/23 Rx cholecalciferol (vitamin D3) 25 25 mcg PO QAM 04/27/23 04/27/23 04/26/23 History mcg (1,000 unit) chewable tablet (Vitamin D3) duloxetine 30 mg capsule,delayed 30 mg PO QAM 04/27/23 04/27/23 04/26/23 History release fenofibrate nanocrystallized 48 mg 48 mg PO QPM 04/27/23 04/27/23 04/26/23 History tablet levothyroxine 25 mcg tablet 25 mcg PO QAM 04/27/23 04/27/23 04/26/23 History ropinirole 2 mg tablet 2 mg PO QPM 04/27/23 04/27/23 04/26/23 History Allergies Allergy/AdvReac Type Severity Reaction Status Date / Time enoxaparin [From Lovenox] Allergy Unknown Verified 04/27/23 03:58 Current Medications Generic Name Dose Route Start Last Admin Trade Name Freq PRN Reason Stop Dose Admin Folic Acid 1 mg/ Multivitamins 1,011.2 mls @ 252.8 mls/hr 04/27/23 06:33 04/27/23 06:59 10 ml/ Thiamine HCl 100 mg/ IV 04/27/23 10:32 252.8 mls/hr Sodium Chloride ONCE ONE Administration [facility] Anesthesia Medical History (Updated 04/27/23 @ 09:31 by Alvaro Bush MD) Hypothyroidism Depression with anxiety Hypertriglyceridemia Alcohol abuse Blood clot in leg Hx pulmonary embolism Family History Other Diabetes mellitus, type 2 Social History (Updated 04/27/23 @ 09:31 by Alvaro Bush MD) Smoking and tobacco/nicotine status: never used tobacco/nicotine Alcohol intake: current Data Anesthesia 04/27/23 09:29 04/27/23 03:35 Short CBC 04/27/23 04/27/23 Range/Units 03:08 09:29 WBC 11.28 15.61 H (3.29-11.43) 10^3/uL Hgb 14.70 12.60 (11.27-16.99) g/dL Hct 43.9 38.2 (37-53) % MCV 90.3 92.9 (82-101) fl Plt Count 285 328 (157-399) 10^3/cmm Neut % (Auto) 77.5 72.4 % Neut # (Auto) 8.75 H 11.31 H (1.8-7.7) 10^3/uL BMP 04/27/23 04/27/23 03:08 03:35 Sodium Cancelled 133 L Potassium Cancelled 4.1 Chloride Cancelled 97 L Carbon Dioxide Cancelled 26 BUN Cancelled 22 H Creatinine Cancelled 1.0 Glucose Cancelled 132 H Calcium Cancelled 9.1 Liver Function 04/27/23 04/27/23 Range/Units 03:08 03:35 Total Bilirubin Cancelled 0.5 AST Cancelled 30 ALT Cancelled 32 Alkaline Phosphatase Cancelled 73 Albumin Cancelled 3.9 Coags 04/27/23 03:08 PT 14.70 INR 1.11 APTT 25.8 Cardiac Studies: 2 No Data to Display
[2023-04-27] MEDS: sodium chloride 0.9% 1,000 ML 30 ML IV (09:48)
--- NOTE | 2023-04-27 11:02 | ANE.PACU2 ---
Inpatient post-anesthesia follow up: Airway intact: Yes Vital signs: Temperature 97 F Pulse Rate 102 Respiratory Rate 16 Blood Pressure 136/86 Pulse Oximetry 94 Oxygen Delivery Me thod Nasal Cannula Oxygen Flow Rate 4 Fraction of Inspir ed Oxygen Hydration adequate: Yes Nausea and vomiting: No Pain level: 2 Mental status: Baseline
[2023-04-27] MEDS: sodium chloride 0.9% 1,000 ML 150 ML IV ×2 (11:16→18:34)
[2023-04-27] MEDS: thiamine 100 mg Tablet PO (12:36)
[2023-04-27] MEDS: folic acid 1 mg Tablet PO (12:37)
[2023-04-27] MEDS: multivitamin therapeutic Tablet 1 TAB PO (12:37)
[2023-04-27 17:31] LABS: Hematocrit 34.1 % (37-53)
[2023-04-27] MEDS: pantoprazole 40 mg SDV IVP (17:38)
[2023-04-27] MEDS: ropinirole 2 mg Tablet PO (23:06)
[2023-04-28] VITALS (10 sets, daily range): BP systolic 113–140; BP diastolic 68–79; PULSE 82–105; RESP 15–17; TEMP 36.4–37; O2SAT 94–100
[2023-04-28] MEDS: sodium chloride 0.9% 1,000 ML 150 ML IV ×3 (00:42→16:50)
[2023-04-28 06:19] LABS: Basophils # 0.1 10^3/uL (0.0-0.1); Basophils % 0.3 %; Eosinophils % 0.1 %; Hematocrit 27.2 % (37-53); Lymphocytes # 2.2 10^3/uL (0.8-4.8); Lymphocytes % 14.1 %; Mean Corpuscular HGB Conc 32.7 g/dL (30-55); Mean Corpuscular Volume 94.8 fl (82-101); Mean Platelet Volume 8.8 fL (7.4-10.4); Monocytes # 1.1 10^3/uL (0.2-0.9); Monocytes % 7.4 %; Neutrophils # 11.88 10^3/uL (1.8-7.7); Neutrophils % 76.6 %; Nucleated Red Blood Cells % 0 %; Platelet Count 222 10^3/cmm (157-399); Red Blood Count 2.87 10^6/uL (3.85-5.65); Red Cell Distribution Width 14.2 % (12.1-15.1)
[2023-04-28] MEDS: pantoprazole 40 mg SDV IVP ×2 (06:25→18:03)
[2023-04-28 06:39] LABS: Alanine Aminotransferase 20 U/L (0-41); Albumin Level 3.3 g/dL (3.5-5.2); Alkaline Phosphatase 47 U/L (40-130); Anion Gap 10.2 (5-19); Aspartate Amino Transferase 18 U/L (0-40); Blood Urea Nitrogen 23 mg/dL (6-20); Calcium 8.1 mg/dL (8.5-10.5); Carbon Dioxide 27 mmol/L (22-29); Chloride 107 mmol/L (98-107); Globulin 2.1 g/dL (1.3-4.6); Glomerular Filtration Rate 71.8 mL/min (90-130); Glucose 115 mg/dL (65-115); Magnesium 2.3 mg/dL (1.7-2.3); Osmolality Calculated 295 mOsm/kg (285-295); Potassium 4.2 mmol/L (3.5-5.1); Sodium 140 mmol/L (136-145); Total Bilirubin 0.3 mg/dL (0.15-1.2); Total Protein 5.4 g/dL (6.6-8.7)
[2023-04-28] MEDS: multivitamin therapeutic Tablet 1 TAB PO (08:32)
[2023-04-28] MEDS: thiamine 100 mg Tablet PO (08:32)
[2023-04-28] MEDS: folic acid 1 mg Tablet PO (08:32)
[2023-04-28] MEDS: levothyroxine 25 mcg Tablet PO (08:44)
[2023-04-28] MEDS: duloxetine 30 mg Capsule PO (08:44)
[2023-04-28] MEDS: ondansetron 2 mg/ML SDV 2 mL 4 MG IVP (10:37)
--- NOTE | 2023-04-28 12:53 | P.PN_ITS ---
Subjective 2 Subjective: Manjinder reports no vomiting since yesterday. Denies seeing any blood in his stool or having any black or tarry stool. Denies abdominal pain. Medications: Reviewed: Yes Vitals/I&O/Wt Last Vital Signs Temp 97.8 F 04/28/23 12:00 Pulse 91 04/28/23 12:00 Resp 17 04/28/23 12:00 BP 132/77 04/28/23 12:00 Pulse Ox 100 04/28/23 12:00 O2 Del Method Room Air 04/28/23 12:00 O2 Flow Rate 4 04/27/23 13:47 04/27/23 04/28/23 04/28/23 22:59 06:59 14:59 Intake Total 1000 / 2711.2 920 / 3631.2 1700 / 1700 Balance 1000 / 2711.2 920 / 3631.2 1700 / 1700 Weight last 48 hrs Weight 132.052 kg Weight 128.367 kg Weight 129.274 kg Physical Exam 2 Narrative: General exam is a white male, no distress Neck is supple no lymphadenopathy thyromegaly Cardiovascular regular rate and rhythm, no murmur Lungs clear no wheezing or crackles Abdomen is soft currently. No significant tenderness. No obvious organomegaly Extremities no cyanosis clubbing edema Data 04/28/23 06:08 04/28/23 06:08 A&P Assessment and plan (1) Upper gastrointestinal hemorrhage: Patient presents with history of coffee-ground emesis, multiple times at home. Differential includes alcoholic gastritis, ulcer, Sherry-Damian tear, less likely varices. EGD yesterday demonstrated blood in stomach, gastritis. Difficult to know exact etiology secondary to amount of blood Possible repeat EGD tomorrow Continue Protonix 40 mg IV every 12 hours Clear liquids Avoid all NSAIDs Counseled on stopping all alcohol Continue hydration Associated with acute blood loss anemia. Hemoglobin has drifted down to 8.9. Repeat hemoglobin later this afternoon. (2) Alcohol abuse: Continue to monitor for withdrawal Counseled on stopping all alcohol [facility] protocol Plan Hypothyroidism, check TSH other medical problems as outlined in past medical history Full code SCD's for DVT proph, no anticoag secondary to GI bleed Attestations 2 Medical Necessity Statement*: Needs continued hospitalization for close follow-up of acute blood loss anemia associate with upper GI bleeding. Diagnoses Upper gastrointestinal hemorrhage K92.2 Alcohol abuse F10.10 Time Spent (min) 24
[2023-04-28 14:35] LABS: Hematocrit 28.6 % (37-53)
[2023-04-28] MEDS: ropinirole 2 mg Tablet PO ×2 (18:02→20:24)
[2023-04-28] MEDS: fenofibrate 48 mg Tablet PO (18:02)
[2023-04-28] MEDS: sodium chloride 0.9% 1,000 ML 75 ML IV (22:57)
[2023-04-29] VITALS (9 sets, daily range): BP systolic 106–132; BP diastolic 66–80; PULSE 77–96; RESP 16–18; TEMP 36.4–36.8; O2SAT 93–100
[2023-04-29 05:55] LABS: Basophils # 0.1 10^3/uL (0.0-0.1); Basophils % 0.7 %; Eosinophils # 0.1 10^3/uL (0.0-0.8); Eosinophils % 1.4 %; Lymphocytes # 2.6 10^3/uL (0.8-4.8); Mean Corpuscular HGB Conc 32.4 g/dL (30-55); Mean Corpuscular Hemoglobin 30.6 pg (27-33); Mean Corpuscular Volume 94.3 fl (82-101); Mean Platelet Volume 8.9 fL (7.4-10.4); Monocytes # 0.7 10^3/uL (0.2-0.9); Monocytes % 7.1 %; Neutrophils # 5.84 10^3/uL (1.8-7.7); Nucleated Red Blood Cells % 0.2 %; Platelet Count 193 10^3/cmm (157-399); Red Blood Count 2.65 10^6/uL (3.85-5.65); Red Cell Distribution Width 14.1 % (12.1-15.1); White Blood Count 9.43 10^3/uL (3.29-11.43)
[2023-04-29] MEDS: levothyroxine 25 mcg Tablet PO (06:00)
[2023-04-29] MEDS: duloxetine 30 mg Capsule PO (06:00)
[2023-04-29] MEDS: pantoprazole 40 mg SDV IVP (06:03)
[2023-04-29 06:17] LABS: Anion Gap 9.8 (5-19); Blood Urea Nitrogen 12 mg/dL (6-20); Calcium 7.9 mg/dL (8.5-10.5); Carbon Dioxide 27 mmol/L (22-29); Chloride 106 mmol/L (98-107); Glomerular Filtration Rate 80.1 mL/min (90-130); Glucose 94 mg/dL (65-115); Osmolality Calculated 288 mOsm/kg (285-295); Potassium 3.8 mmol/L (3.5-5.1); Sodium 139 mmol/L (136-145)
--- NOTE | 2023-04-29 10:49 | ANES.PREANE2 ---
Pre-Anesthetic Assessment Height/Weight: Height 1.83 m Weight 134.377 kg Temp Pulse Resp BP Pulse Ox O2 Del Method O2 Flow Rate 97.6 F 77 18 117/73 98 Room Air 4 04/29/23 10:42 04/29/23 10:42 04/29/23 10:42 04/29/23 10:42 04/29/23 10:42 04/29/23 10:42 04/27/23 13:47 Preop Diagnosis: upper GI hemorrhage Operation Date: 04/27/23 10:00 Proposed Procedures p EGD(Not Applicable) - Francisco Banerjee MD Operation Date: 04/29/23 11:10 Proposed Procedures p EGD(Not Applicable) - Francisco Banerjee MD Familial anesthetic complications: none Was Beta Asim taken within 24 hours: N/A Was Clonidine taken within 24 hours: N/A Social Alcohol (abuse) and Tobacco Exam alert, oriented x 3, clear to auscultation bilaterally and regular rate & rhythm Airway Submandibular: within normal limits Cervical ROM: within normal limits Mallampati: Class III Dentition: chipped History/ROS No significant history except as noted Pulmonary None reported CV/HEM Deep Vein Thrombosis (history of DVTs) None reported Hepatic None reported GI Gastroesophageal Reflux Disease Metabolic Hyperlipidemia, Morbid Obesity and Thyroid Disease [facility] [place] None reported Neuropsych Anxiety Anesthetic Plan ASA status: 3 Anesthesia: Anesthesia Evaluation and MAC Medications/Allergies Home Medications Medication Instructions Recorded Confirmed Last Taken Type apixaban 5 mg tablet (Eliquis) 5 mg PO BID #60 tabs 01/29/23 04/27/23 04/26/23 Rx cholecalciferol (vitamin D3) 25 25 mcg PO QAM 04/27/23 04/27/23 04/26/23 History mcg (1,000 unit) chewable tablet (Vitamin D3) duloxetine 30 mg capsule,delayed 30 mg PO QAM 04/27/23 04/27/23 04/26/23 History release fenofibrate nanocrystallized 48 mg 48 mg PO QPM 04/27/23 04/27/23 04/26/23 History tablet levothyroxine 25 mcg tablet 25 mcg PO QAM 04/27/23 04/27/23 04/26/23 History ropinirole 2 mg tablet 2 mg PO QPM 04/27/23 04/27/23 04/26/23 History pantoprazole 40 mg tablet,delayed 40 mg PO BID #60 tabs 04/29/23 Unknown Rx release (Protonix) Allergies Allergy/AdvReac Type Severity Reaction Status Date / Time enoxaparin [From Lovenox] Allergy Unknown Verified 04/27/23 03:58 Current Medications Generic Name Dose Route Start Last Admin Trade Name Freq PRN Reason Stop Dose Admin Duloxetine HCl 30 mg 04/28/23 08:35 04/29/23 06:00 Duloxetine 30 Mg Capsule PO 30 mg QAM AHMET Administration Fenofibrate 48 mg 04/28/23 18:00 04/28/23 18:02 Fenofibrate 48 Mg Tablet PO 48 mg QPM AHMET Administration Folic Acid 1 mg 04/27/23 09:00 04/28/23 08:32 Folic Acid 1 Mg Tablet PO 1 mg DAILY AHMET Administration Sodium Chloride 1,000 mls @ 75 mls/hr 04/27/23 08:10 04/28/23 22:57 Sodium Chloride 0.9% IV 75 mls/hr .[id number] AHMET Administration Levothyroxine Sodium 25 mcg 04/28/23 08:35 04/29/23 06:00 Levothyroxine 25 Mcg Tablet PO 25 mcg QAM AHMET Administration Multivitamins Therapeutic 1 tab 04/27/23 09:00 04/28/23 08:32 Multivitamin Therapeutic Tablet PO 1 tab DAILY AHMET Administration Ondansetron HCl 4 mg 04/27/23 08:10 04/28/23 10:37 Ondansetron 2 Mg/Ml Sdv 2 Ml IVP 4 mg Q6H PRN Administration NAUSEA AND VOMITING Pantoprazole Sodium 40 mg 04/27/23 18:00 04/29/23 06:03 Pantoprazole 40 Mg Sdv IVP 40 mg Q12H AHMET Administration Ropinirole HCl 2 mg 04/27/23 22:25 04/28/23 20:24 Ropinirole 2 Mg Tablet PO 2 mg BEDTIME AHMET Administration Ropinirole HCl 2 mg 04/28/23 18:00 04/28/23 18:02 Ropinirole 2 Mg Tablet PO 2 mg QPM AHMET Administration Thiamine Mononitrate 100 mg 04/27/23 09:00 04/28/23 08:32 Thiamine 100 Mg Tablet PO 100 mg DAILY AHMET Administration PFS Anesthesia Medical History (Updated 04/27/23 @ 09:31 by Alvaro Bush MD) Hypothyroidism Depression with anxiety Hypertriglyceridemia Alcohol abuse Blood clot in leg Hx pulmonary embolism Family History Other Diabetes mellitus, type 2 Social History (Updated 04/27/23 @ 09:31 by Alvaro Bush MD) Smoking and tobacco/nicotine status: never used tobacco/nicotine Alcohol intake: current Data Anesthesia 04/29/23 05:42 04/29/23 05:42 Short CBC 04/27/23 04/27/23 04/28/23 Range/Units 12:35 17:10 06:08 WBC 15.50 H (3.29-11.43) 10^3/uL Hgb 10.90 L 11.20 L 8.90 L (11.27-16.99) g/dL Hct 33.0 L 34.1 L 27.2 L (37-53) % MCV 94.8 (82-101) fl Plt Count 222 D (157-399) 10^3/cmm Neut % (Auto) 76.6 % Neut # (Auto) 11.88 H (1.8-7.7) 10^3/uL 04/28/23 04/29/23 Range/Units 14:23 05:42 WBC 9.43 (3.29-11.43) 10^3/uL Hgb 8.90 L 8.10 L (11.27-16.99) g/dL Hct 28.6 L 25.0 L (37-53) % MCV 94.3 (82-101) fl Plt Count 193 (157-399) 10^3/cmm Neut % (Auto) 62.0 % Neut # (Auto) 5.84 (1.8-7.7) 10^3/uL BMP 04/28/23 04/29/23 06:08 05:42 Sodium 140 139 Potassium 4.2 3.8 Chloride 107 106 Carbon Dioxide 27 27 BUN 23 H 12 Creatinine 1.1 1.0 Glucose 115 94 Calcium 8.1 L 7.9 L Liver Function 04/28/23 Range/Units 06:08 Total Bilirubin 0.3 (0.15-1.2) mg/dL AST 18 (0-40) U/L ALT 20 (0-41) U/L Alkaline Phosphatase 47 (40-130) U/L Albumin 3.3 L (3.5-5.2) g/dL Cardiac Studies: No Data to Display
[2023-04-29] MEDS: sodium chloride 0.9% 1,000 ML 30 ML IV (11:05)
--- NOTE | 2023-04-29 11:24 | P.PN_ITS ---
Subjective 2 Subjective: the patient is without complaints Medications: Reviewed: Yes Vitals/I&O/Wt Last Vital Signs Temp 97.6 F 04/29/23 10:42 Pulse 77 04/29/23 10:42 Resp 18 04/29/23 10:42 BP 117/73 04/29/23 10:42 Pulse Ox 98 04/29/23 10:42 O2 Del Method Room Air 04/29/23 10:42 O2 Flow Rate 4 04/27/23 13:47 04/28/23 04/29/23 04/29/23 22:59 06:59 14:59 Intake Total 2246.25 / 3946.25 Balance 2246.25 / 3946.25 Weight last 48 hrs Weight 296 lb 4 oz Weight 291 lb 2 oz Physical Exam 2 Narrative: abd - Soft, nontender no masses. Data 04/29/23 05:42 04/29/23 05:42 A&P Assessment and plan (1) Upper gastrointestinal hemorrhage: EDG today Attestations 2 Medical Necessity Statement*: see hospitalist note Coding Level of Care Code 35629 Diagnoses Upper gastrointestinal hemorrhage K92.2
--- NOTE | 2023-04-29 12:26 | P.PN_ITS ---
Subjective 2 Subjective: stable overnight EDG was normal. No abnormalities seen. Medications: Reviewed: Yes Vitals/I&O/Wt Last Vital Signs Temp 97.6 F 04/29/23 10:42 Pulse 91 04/29/23 12:02 Resp 18 04/29/23 12:02 BP 122/80 04/29/23 12:02 Pulse Ox 100 04/29/23 12:02 O2 Del Method Room Air 04/29/23 12:02 O2 Flow Rate 2 04/29/23 11:52 04/28/23 04/29/23 04/29/23 22:59 06:59 14:59 Intake Total 2246.25 / 3946.25 Balance 2246.25 / 3946.25 Weight last 48 hrs Weight 296 lb 4 oz Weight 291 lb 2 oz Physical Exam 2 Narrative: abd - benign Data 04/29/23 05:42 04/29/23 05:42 A&P Assessment and plan (1) Upper gastrointestinal hemorrhage: wound consider treating for gastritis/peptic ulcer disease for 6 - 8 weeks. Must stop drinking. would consider restarting apixaban. Please reconsult for questions or concerns. Attestations 2 Medical Necessity Statement*: see hospitalist note Coding Level of Care Code Acute Code for Chg Fwd Diagnoses Upper gastrointestinal hemorrhage K92.2
--- NOTE | 2023-04-29 12:30 | PM.DCS ---
Discharge Providers Date of Admission: 04/27/23 07:46 Date of Discharge: April 29, 2023 Attending Provider at Admission: Tristin Higginbotham MD Attending Provider at Discharge: Alvaro Bush MD Primary Care Provider: SHAILA Kemp Diagnoses at Discharge Discharge Diagnosis (1) Upper gastrointestinal hemorrhage: Status: Acute Reason for Visit Reason for Visit: vomiting blood Hospital Course Hospital Course Manjinder is a 48-year-old white male who presented to the hospital with hematemesis. He had significant acute blood loss anemia, but did not require transfusion. EGD was performed initially in significant amount of blood in stomach, gastritis, but no obvious source. His Eliquis he was on for pulmonary embolism was held. He was told not to drink any alcohol and was placed on a CIWA protocol. He had not been taking any anti-inflammatories. During his hospital stay after initial hematemesis in the emergency department and right on arrival to the floor, he had no obvious other active bleeding. He was monitored closely, hemoglobin stabilized. On day of discharge EGD was repeated, and no significant abnormality was noted. It is possible that a Sherry-Damian tear could have occurred. He was instructed he could resume his Eliquis tomorrow, monitor for any bleeding. He is not to drink any further alcohol, avoid all anti-inflammatories. Slowly advance diet. He was given an opportunity ask questions, and agreed with the plan. He will follow-up with his primary care provider tomorrow, get a CBC. Hemoglobin was 8.1 on discharge. Physical Exam Narrative: General exam no distress Neck is supple Cardiovascular regular rate and rhythm Lungs clear Abdomen is soft Extremities no cyanosis clubbing edema Discharge Data Studies Completed and Pending Completed Studies During Hospitalization Category Date Time Status CT abdomen pelvis w con* [id number] Stat Cat Scan 04/27/23 05:36 Completed Radiology Impressions Abdomen/Pelvis CT 04/27/23 05:36 IMPRESSION: Hepatic steatosis. Mild hepatomegaly. Laboratory Results WBC 9.43 10^3/uL (3.29-11.43) 04/29/23 05:42 RBC 2.65 10^6/uL (3.85-5.65) L 04/29/23 05:42 Hgb 8.10 g/dL (11.27-16.99) L 04/29/23 05:42 Hct 25.0 % (37-53) L 04/29/23 05:42 MCV 94.3 fl (82-101) 04/29/23 05:42 MCH 30.6 pg (27-33) 04/29/23 05:42 MCHC 32.4 g/dL (30-55) 04/29/23 05:42 RDW 14.1 % (12.1-15.1) 04/29/23 05:42 Plt Count 193 10^3/cmm (157-399) 04/29/23 05:42 MPV 8.9 fL (7.4-10.4) 04/29/23 05:42 Neut % (Auto) 62.0 % 04/29/23 05:42 Lymph % (Auto) 27.0 % 04/29/23 05:42 [place] % (Auto) 7.1 % 04/29/23 05:42 Eos % (Auto) 1.4 % 04/29/23 05:42 Baso % (Auto) 0.7 % 04/29/23 05:42 Neut # (Auto) 5.84 10^3/uL (1.8-7.7) 04/29/23 05:42 Lymph # (Auto) 2.6 10^3/uL (0.8-4.8) 04/29/23 05:42 [place] # (Auto) 0.7 10^3/uL (0.2-0.9) 04/29/23 05:42 Eos # (Auto) 0.1 10^3/uL (0.0-0.8) 04/29/23 05:42 Baso # (Auto) 0.1 10^3/uL (0.0-0.1) 04/29/23 05:42 Nucleated RBC % (auto) 0.2 % 04/29/23 05:42 Nucleated RBCs # 0.0 /100WBC 04/29/23 05:42 PT 14.70 SECONDS (12.1-14.9) 04/27/23 03:08 INR 1.11 (0.8-1.2) 04/27/23 03:08 APTT 25.8 SECONDS (23.9-36.7) 04/27/23 03:08 Sodium 139 mmol/L (136-145) 04/29/23 05:42 Potassium 3.8 mmol/L (3.5-5.1) 04/29/23 05:42 Chloride 106 mmol/L (98-107) 04/29/23 05:42 Carbon Dioxide 27 mmol/L (22-29) 04/29/23 05:42 Anion Gap 9.8 (5-19) 04/29/23 05:42 BUN 12 mg/dL (6-20) 04/29/23 05:42 Creatinine 1.0 mg/dL (0.7-1.2) 04/29/23 05:42 GFR Calculation 80.1 mL/min (90-130) L 04/29/23 05:42 Glucose 94 mg/dL (65-115) 04/29/23 05:42 Calculated Osmolality 288 mOsm/kg (285-295) 04/29/23 05:42 Calcium 7.9 mg/dL (8.5-10.5) L 04/29/23 05:42 Magnesium 2.3 mg/dL (1.7-2.3) 04/28/23 06:08 Total Bilirubin 0.3 mg/dL (0.15-1.2) 04/28/23 06:08 AST 18 U/L (0-40) 04/28/23 06:08 ALT 20 U/L (0-41) 04/28/23 06:08 Alkaline Phosphatase 47 U/L (40-130) 04/28/23 06:08 Total Protein 5.4 g/dL (6.6-8.7) L 04/28/23 06:08 Albumin 3.3 g/dL (3.5-5.2) L 04/28/23 06:08 Globulin 2.1 g/dL (1.3-4.6) 04/28/23 06:08 TSH 4.60 uIU/mL (0.27-4.20) H 04/27/23 03:35 Vitals Last Vital Signs Temp 97.6 F 04/29/23 10:42 Pulse 91 04/29/23 12:02 Resp 18 04/29/23 12:02 BP 122/80 04/29/23 12:02 Pulse Ox 100 04/29/23 12:02 O2 Del Method Room Air 04/29/23 12:02 O2 Flow Rate 2 04/29/23 11:52 Discharge Plan Discharge Patient Disposition: Home Condition: Stable Prescriptions: New pantoprazole [Protonix] 40 mg tablet,delayed release (DR/EC) 40 mg PO BID Qty: 60 0RF Continued Eliquis 5 mg tablet 5 mg PO BID Qty: 60 11RF duloxetine 30 mg capsule,delayed release(DR/EC) 30 mg PO QAM Vitamin D3 25 mcg (1,000 unit) Tablet,Chewable 25 mcg PO QAM levothyroxine 25 mcg tablet 25 mcg PO QAM ropinirole 2 mg tablet 2 mg PO QPM fenofibrate nanocrystallized 48 mg tablet 48 mg PO QPM Discharge Orders: Discharge Order (Routine); Ordered 04/29/23 Ordered By: Alvaro Bush Referrals: Sarah Alejandro FNP [Primary Care Provider] - 04/30/23 9:00 am (CBC on follow-up) Discharge Diet: Usual diet Discharge Activity: Increase activity as tolerated Patient Instructions: GI Discharge Instructions, Opioid Safety Activity Restrictions/Additional Instructions: Continue Protonix 40 mg twice daily for minimum of 6 weeks Follow-up with with primary care provider, CBC on follow-up No anti-inflammatories No alcohol Return for any concerns Eliquis may be restarted tomorrow. Monitor for any bleeding. Discharge Attestations Time Spent in Discharge Care*: greater than 30 min Quality Metrics Clinical Quality Measures [ No reported AMI, CVA or VTE this stay] Coding Level of Care Code 68667 Total time (in minutes) for Discharge: 38 Diagnoses Upper gastrointestinal hemorrhage K92.2
--- NOTE | 2023-04-29 14:35 | ANE.PACU2 ---
Inpatient post-anesthesia follow up: Airway intact: Yes Vital signs: Temperature 98.1 F Pulse Rate 91 Respiratory Rate 18 Blood Pressure 122/80 Pulse Oximetry 100 Oxygen Delivery Me thod Room Air Oxygen Flow Rate 2 Fraction of Inspir ed Oxygen Hydration adequate: Yes Nausea and vomiting: No Pain level: 2 Mental status: Baseline
== END 2023-04-29 13:00 | disposition home or self-care (01) ==
LOC: ER 06:46 → MEDSURG 09:03
PROVIDERS: Internal Medicine; Surgery Surgical Critical Care; Admitting Provider Internal Medicine; Emergency Provider Family Medicine; PCP Nurse Practitioner; Visit Provider Internal Medicine
PROC: 0DJ08ZZ Inspection of Upper Intestinal Tract, Via Natural or Artificial Opening Endoscopic (ICD-10-PCS; CPT 43235; principal; 2023-04-27 10:00)
DX: K92.2 Gastrointestinal hemorrhage, unspecified (principal); Z79.01 Long term (current) use of anticoagulants; Z86.711 Personal history of pulmonary embolism; R16.0 Hepatomegaly, not elsewhere classified; Z86.718 Personal history of other venous thrombosis and embolism; E78.5 Hyperlipidemia, unspecified; E66.01 Morbid (severe) obesity due to excess calories; E03.9 Hypothyroidism, unspecified; F10.10 Alcohol abuse, uncomplicated; K76.0 Fatty (change of) liver, not elsewhere classified
CPT/HCPCS: 36415; 43235; 74177; 80048; 80053; 83735; 84443; 85014; 85018; 85025; 85610; 85730; 93005; 96372; 96374; 99285; C9113; G0378; J0330; J1100; J2405; J2704; J3411; J3490; J7030; Q9967

== ENCOUNTER 2024-04-30 17:54 | Emergency (ER) | payer SELFPAY ==
[2024-04-30 18:02] VITALS: BP 142/90; PULSE 118; RESP 28; TEMP 36.4; O2SAT 93
--- NOTE | 2024-04-30 18:11 | ED_ITS ---
HPI - SOB/Dyspnea 2 General: Chief Complaint: Shortness of Breath/Dyspnea Stated Complaint: sob Time Seen by Provider: 04/30/24 18:10 History of Present Illness: HPI Narrative: 49-year-old male patient who says he has been sick for around 2 weeks on and off. He was treated for respiratory tract infection a couple of weeks ago with antibiotics and steroids. Antibiotics were switched, which caused a reaction for him, so he stopped them. He presents with increasing shortness of breath, inability to walk without stopping to rest due to shortness of breath, right leg pain. No fever. Mild cough. No sputum production. He has chest pressure. This is all despite antibiotics and steroids. Related Data Home Medications Medication Instructions Recorded Confirmed cholecalciferol (vitamin D3) 25 25 mcg PO QAM 04/27/23 04/27/23 mcg (1,000 unit) chewable tablet (Vitamin D3) duloxetine 30 mg capsule,delayed 30 mg PO QAM 04/27/23 04/27/23 release fenofibrate nanocrystallized 48 mg 48 mg PO QPM 04/27/23 04/27/23 tablet ropinirole 2 mg tablet 2 mg PO QPM 04/27/23 04/27/23 Previous Rx's Medication Instructions Recorded apixaban 5 mg tablet (Eliquis) 5 mg PO BID #60 tabs 01/29/23 pantoprazole 40 mg tablet,delayed 40 mg PO BID #60 tabs 04/29/23 release (Protonix) levothyroxine 50 mcg tablet 50 mcg PO DAILY #60 tabs 06/03/23 Allergies Allergy/AdvReac Type Severity Reaction Status Date / Time amoxicillin [From Augmentin] Allergy ALGY-Hives Verified 04/30/24 18:06 clavulanic acid Allergy ALGY-Hives Verified 04/30/24 18:06 [From Augmentin] enoxaparin [From Lovenox] Allergy Unknown Verified 04/30/24 18:06 PFS ED 2 PFSH: Medical History Hypothyroidism Depression with anxiety Hypertriglyceridemia Alcohol abuse Blood clot in leg Hx pulmonary embolism Family History Other Diabetes mellitus, type 2 Social History Smoking and tobacco/nicotine status: never used tobacco/nicotine Alcohol intake: current Physical Exam 2 Const: COMMON NORMALS: no acute distress GENERAL APPEARANCE: cooperative and ill appearing (Mildly); not frail appearing HENMT: COMMON NORMALS: normocephalic, atraumatic and Normal external nose present HEAD & SCALP: normocephalic and atraumatic FACE & SINUS: normal facial exam and face symmetric NOSE: Normal external nose present Eye: COMMON NORMALS: Equal, round and reactive pupils present and EOMs intact bilaterally PUPIL: Yes Equal, round and reactive pupils present Neck/C-Spine: GENERAL: Yes trachea midline Chest: CHEST: Yes Symmetrical chest wall rise Resp: COMMON NORMALS: clear to auscultation bilaterally EFFORT & INSPECTION: Yes tachypneic and Yes labored AUSCULTATION: clear to auscultation bilaterally Cardio: COMMON NORMALS: regular rhythm RATE: tachycardic RHYTHM: regular rhythm GI: COMMON NORMALS: Normal to inspection, nondistended, normoactive bowel sounds present Extremity: COMMON NORMALS: no pedal edema Neuro: ALYSIA COMA SCALE: document GCS findings Alysia coma scale eye opening: Spontaneous Alysia coma scale verbal response: Orientated Alysia coma scale motor response: Obey commands Alysia coma scale total score: 15 S ENSORY EXAM: Yes extremities (intact) Psych: COMMON NORMALS: speech normal SPEECH: Yes normal speech Skin: COMMON NORMALS: no rashes or lesions noted GENERAL SKIN EXAM: no rashes or lesions noted Course 2 Vital Signs: Vital signs: Vital Signs Temperature 97.5 F L 04/30/24 18:02 Pulse Rate 104 H 04/30/24 22:30 Respiratory Rate 25 H 04/30/24 22:30 Blood Pressure 126/98 04/30/24 22:30 Pulse Oximetry 95 04/30/24 22:30 Oxygen Delivery Me thod Nasal Cannula 04/30/24 22:30 Oxygen Flow Rate 2 04/30/24 22:30 MDM - SOB/Dyspnea Medical Decision Making White blood cell count is 14.3. Blood pressure is initially hypertensive, but improved now. Heart rate is 110-120. EKG reveals sinus tachycardia with a rate of 120, borderline right axis, deep S wave in lead I with Q waves in lead III. D-dimer is significantly elevated. Troponin initially is elevated as well. Chest x-ray shows cardiomegaly. CTA of the chest shows bilateral pulmonary emboli with an RV to LV ratio of 1.9. He also has a right popliteal and peroneal DVT on the right by ultrasound. Spoke with interventional radiology at [facility]. The patient would be a candidate for intervention. Counseled the patient. He agrees to go. Patient has been accepted by the hospitalist team there. He is on heparin currently. Lab Data 04/30/24 18:23 04/30/24 18: Labs/Radiology: Radiology Impressions Chest X-Ray 04/30/24 18:12 IMPRESSION: Cardiomegaly, negative for infiltrate. Chest CTA 04/30/24 19:03 IMPRESSION: Multifocal bilateral pulmonary emboli with right heart strain given RV to LV ratio of approximately 1.9. ADDENDUM: 04/30/242044 THIS REPORT CONTAINS FINDINGS THAT MAY BE CRITICAL TO PATIENT CARE. The findings were verbally communicated via telephone conference with CARLYLE RODRIGUEZ at 8:[address] on 04/30/2024. The findings were acknowledged and understood. Venous Duplex 04/30/24 19:03 IMPRESSION: Right popliteal and peroneal vein deep venous thrombosis. ADDENDUM: 04/30/242044 THIS REPORT CONTAINS FINDINGS THAT MAY BE CRITICAL TO PATIENT CARE. The findings were verbally communicated via telephone conference with CARLYLE RODRIGUEZ at 8:[address] ADVIS[address] on 04/30/2024. The findings were acknowledged and understood. Laboratory Results WBC 14.36 10^3/uL (3.29-11.43) H 04/30/24 18: RBC 5.06 10^6/uL (3.85-5.65) 04/30/24 18: Hgb 15.40 g/dL (11.27-16.99) 04/30/24 18: Hct 45.6 % (37-53) 04/30/24 18: MCV 90.1 fl (82-101) 04/30/24 18: MCH 30.4 pg (27-33) 04/30/24 18: MCHC 33.8 g/dL (30-55) 04/30/24 18: RDW 13.6 % (12.1-15.1) 04/30/24 18: Plt Count 181 10^3/cmm (157-399) 04/30/24 18:23 MPV 9.2 fL (7.4-10.4) 04/30/24 18:23 Neut % (Auto) 71.6 % 04/30/24 18:23 Lymph % (Auto) 18.0 % 04/30/24 18:23 [place] % (Auto) 6.4 % 04/30/24 18:23 Eos % (Auto) 2.7 % 04/30/24 18:23 Baso % (Auto) 0.8 % 04/30/24 18:23 Neut # (Auto) 10.29 10^3/uL (1.8-7.7) H 04/30/24 18:23 Lymph # (Auto) 2.6 10^3/uL (0.8-4.8) 04/30/24 18:23 [place] # (Auto) 0.9 10^3/uL (0.2-0.9) 04/30/24 18:23 Eos # (Auto) 0.4 10^3/uL (0.0-0.8) 04/30/24 18:23 Baso # (Auto) 0.1 10^3/uL (0.0-0.1) 04/30/24 18: Nucleated RBC % (auto) 0 % 04/30/24 18: Nucleated RBCs # 0.0 /100WBC 04/30/24 18:23 APTT 27.8 SECONDS (23.9-36.7) 04/30/24 18:23 D-Dimer 8.20 ug/mLFEU (0-0.59) H 04/30/24 18:23 Sodium 136 mmol/L (136-145) 04/30/24 18:23 Potassium 3.9 mmol/L (3.5-5.1) 04/30/24 18:23 Chloride 103 mmol/L (98-107) 04/30/24 18:23 Carbon Dioxide 17 mmol/L (22-29) L 04/30/24 18:23 Anion Gap 19.9 (5-19) H 04/30/24 18:23 BUN 9 mg/dL (6-20) 04/30/24 18:23 Creatinine 0.9 mg/dL (0.7-1.2) 04/30/24 18:23 GFR Calculation 90.1 mL/min (90-130) 04/30/24 18:23 Glucose 165 mg/dL (65-115) H 04/30/24 18:23 Calculated Osmolality 284 mOsm/kg (285-295) L 04/30/24 18:23 Lactic Acid 2.9 mmol/L (0.5-2.2) H 04/30/24 18:23 Lactic Acid (Sepsis) 1.3 mmol/L (0.5-2.2) 04/30/24 21:21 Calcium 8.9 mg/dL (8.5-10.5) 04/30/24 18:23 Total Bilirubin 0.5 mg/dL (0.15-1.2) 04/30/24 18:23 AST 102 U/L (0-40) H 04/30/24 18:23 ALT 100 U/L (0-41) H 04/30/24 18:23 Alkaline Phosphatase 109 U/L (40-130) 04/30/24 18:23 Troponin T Baseline 36 ng/L (0-15) H 04/30/24 18:23 Troponin T 120 Minute 38.50 ng/L (0-15) H 04/30/24 20:07 Delta Troponin T 2.50 ABS# (0-10) 04/30/24 20:07 NT-Pro-B Natriuret Pep 2531 pg/mL (0-125) H 04/30/24 18:23 Total Protein 6.8 g/dL (6.6-8.7) 04/30/24 18:23 Albumin 3.8 g/dL (3.5-5.2) 04/30/24 18:23 Globulin 3.0 g/dL (1.3-4.6) 04/30/24 18:23 Coronavirus (PCR) Negative (Negative) 04/30/24 18:33 Influenza A (PCR) Negative (Negative) 04/30/24 18:33 Influenza Type B (PCR) Negative (Negative) 04/30/24 18:33 RSV (PCR) Negative (Negative) 04/30/24 18:33 All radiology interpretation(s) finalized by discharge Discharge Plan Discharge Patient Disposition: Xfer Short-Term Hosp Clinical Impression: Pulmonary embolism with acute cor pulmonale Condition: Serious Referrals: [place],Sarah Johnna, VENEER MEASURER [Primary Care Provider] - Coding Level of Care Code ED Stopper Grinder for Myles Wright
--- NOTE | 2024-04-30 18:12 | XRR_ITS ---
PROCEDURE INFORMATION: Exam: XR Chest Exam date and time: 04/30/2024 6:23 PM Age: 49 years old Clinical indication: Shortness of breath; Patient HX: Chest heaviness; SOB; HX pe TECHNIQUE: Imaging protocol: Radiologic exam of the chest. Views: 1 view. COMPARISON: CT abdomen pelvis w con* [id number] 04/27/2023 5:42 AM FINDINGS: Lungs: See Heart/Mediastinum finding. Pleural spaces: Unremarkable. No pleural effusion. No pneumothorax. Heart/Mediastinum: Cardiomegaly, negative for infiltrate. Bones/joints: Unremarkable. XR/XR chest 1V portable [id number] IMPRESSION: Cardiomegaly, negative for infiltrate.
--- NOTE | 2024-04-30 18:12 | ECG_ITS ---
[employer] 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 Measurements Intervals [place] Rate: 120 P: 62 ME: 89 QRS: 91 QRSD: 109 T: -55 QT: 353 QTc: 500 Interpretive Statements SINUS TACHYCARDIA WITH SHORT ME INTERVAL BORDERLINE RIGHT AXIS DEVIATION [QRS AXIS > 90] INCOMPLETE RIGHT BUNDLE BRANCH BLOCK [90+ ms QRS DURATION, TERMINAL R IN V1/V2, 40+ ms S IN I/aVL/V4/V5/V6] ST DEVIATION AND MODERATE T-WAVE ABNORMALITY, CONSIDER ANTERIOR ISCHEMIA [-0.1+ mV T-WAVE IN V3/V4] INTERPRETATION BASED ON A DEFAULT AGE OF 40 YEARS Compared to ECG 04/27/2023 03:15:11 Incomplete right bundle-branch block now present T-wave abnormality now present Possible ischemia now present Sinus rhythm no longer present Electronically Signed On 05-01-2024 20:12:11 ANIMAL KEEPER by Giovanny Ascencio M.D. [id number]
[2024-04-30 18:20] VITALS: PULSE 117; RESP 18; O2SAT 93
[2024-04-30] MEDS: ipratropium-albuterol 3 mL Neb INHALATION (18:23)
[2024-04-30 18:29] LABS: Basophils # 0.1 10^3/uL (0.0-0.1); Basophils % 0.8 %; Eosinophils # 0.4 10^3/uL (0.0-0.8); Eosinophils % 2.7 %; Hematocrit 45.6 % (37-53); Lymphocytes # 2.6 10^3/uL (0.8-4.8); Mean Corpuscular HGB Conc 33.8 g/dL (30-55); Mean Corpuscular Hemoglobin 30.4 pg (27-33); Mean Corpuscular Volume 90.1 fl (82-101); Mean Platelet Volume 9.2 fL (7.4-10.4); Monocytes # 0.9 10^3/uL (0.2-0.9); Monocytes % 6.4 %; Neutrophils # 10.29 10^3/uL (1.8-7.7); Neutrophils % 71.6 %; Nucleated Red Blood Cells % 0 %; Platelet Count 181 10^3/cmm (157-399); Red Blood Count 5.06 10^6/uL (3.85-5.65); Red Cell Distribution Width 13.6 % (12.1-15.1); White Blood Count 14.36 10^3/uL (3.29-11.43)
[2024-04-30 18:48] LABS: Troponin(5th) Baseline 36 ng/L (0-15)
[2024-04-30 18:51] LABS: Lactic Sepsis W/Reflex 2.9 mmol/L (0.5-2.2)
--- NOTE | 2024-04-30 19:03 | CTR_ITS ---
PROCEDURE INFORMATION: Exam: CTA Chest With Contrast Exam date and time: 04/30/2024 7:37 PM Age: 49 years old Clinical indication: Pain and abnormal findings; Abnormal diagnostic tests; Elevated d-dimer; Shortness of breath; Chest pressure; Patient HX: C/O chest discomfort with SOB. Tachycardic. Dimer of 8. Positive for dvt. ; Additional info: SOB, chest pressure, tachycardia TECHNIQUE: Imaging protocol: Computed tomographic angiography of the chest with contrast. Exam focused on the arteries. 3D rendering (Not supervised by radiologist): MIP and/or 3D reconstructed images were created by the technologist. Radiation optimization: All CT scans at this facility use at least one of these dose optimization techniques: automated exposure control; mA and/or kV adjustment per patient size (includes targeted exams where dose is matched to clinical indication); or iterative reconstruction. Contrast material: OMNI 350; Contrast volume: 100 ml; Contrast route: INTRAVENOUS (IV); COMPARISON: CR (CHEST, ) 04/30/2024 6:23 PM RADIATION DOSE METRICS: Total DLP (mGy-cm): 600.84 FINDINGS: Pulmonary arteries: Multifocal bilateral pulmonary emboli with right heart strain given RV to LV ratio of approximately 1.9. Aorta: Unremarkable. No aortic aneurysm. No aortic dissection. Lungs: Unremarkable. No consolidation. No masses. Pleural spaces: Unremarkable. No pneumothorax. No pleural effusion. Heart: Unremarkable. No cardiomegaly. No pericardial effusion. Lymph nodes: Unremarkable. No enlarged lymph nodes. Bones/joints: Unremarkable. No acute fracture. Soft tissues: Unremarkable. CT/CT angio chest PE protcl [id number] IMPRESSION: Multifocal bilateral pulmonary emboli with right heart strain given RV to LV ratio of approximately 1.9.
--- NOTE | 2024-04-30 19:03 | USR_ITS ---
PROCEDURE INFORMATION: Exam: US Duplex Right Lower Extremity Veins, Limited Exam date and time: 04/30/2024 7:23 PM Age: 49 years old Clinical indication: Pain; Leg, lower; Right; Additional info: R leg pain TECHNIQUE: Imaging protocol: Real-time duplex ultrasound of the right extremity with 2-D mercado scale, color Doppler flow and spectral waveform analysis including responses to compression and other maneuvers (when performed) with image documentation. Limited exam was focused on the right lower extremity veins. COMPARISON: CT abdomen pelvis w con* [id number] 04/27/2023 5:42 AM FINDINGS: Right deep veins: Right popliteal and peroneal vein deep venous thrombosis. Superficial veins: Greater saphenous vein at the saphenofemoral junction is patent without thrombus. Soft tissues: Unremarkable. US/[place] [id number] IMPRESSION: Right popliteal and peroneal vein deep venous thrombosis.
[2024-04-30 19:06] LABS: Alanine Aminotransferase 100 U/L (0-41); Albumin Level 3.8 g/dL (3.5-5.2); Alkaline Phosphatase 109 U/L (40-130); Anion Gap 19.9 (5-19); Aspartate Amino Transferase 102 U/L (0-40); Blood Urea Nitrogen 9 mg/dL (6-20); Calcium 8.9 mg/dL (8.5-10.5); Carbon Dioxide 17 mmol/L (22-29); Chloride 103 mmol/L (98-107); Creatinine Clr Calc Pharmacy 142.0946; Glomerular Filtration Rate 90.1 mL/min (90-130); Glucose 165 mg/dL (65-115); NT Pro B Type Natriuretic Pept 2531 pg/mL (0-125); Osmolality Calculated 284 mOsm/kg (285-295); Potassium 3.9 mmol/L (3.5-5.1); Sodium 136 mmol/L (136-145); Total Bilirubin 0.5 mg/dL (0.15-1.2); Total Protein 6.8 g/dL (6.6-8.7)
[2024-04-30 19:27] LABS: Covid PCR NEGATIVE (Negative); Influenza A NEGATIVE (Negative); Influenza B NEGATIVE (Negative); Respiratory Syncytial Virus Ce NEGATIVE (Negative)
[2024-04-30 19:29] LABS: Reflex Lactate Order REFLEX LACTIC ORDERD
[2024-04-30] MEDS: iohexol 350 mg/mL 500 mL Btl (per mL) IV (19:39)
[2024-04-30] MEDS: AZITHROMYCIN ADD-Vantage 500 MG in 0.9% NaCl ADD-Vantage 250 ML 250 MG IV (19:52)
[2024-04-30] MEDS: cefTRIAXone 1,000 mg SDV 1000 MG IVP (19:52)
--- NOTE | 2024-04-30 20:09 | ECG_ITS ---
[facility] Date: 2024-04-30 Pat Name: Manjinder Mondragon Department: Room: Gender: Male Arch Support Maker: : 1975 Requested By: Carlyle Delong Order Number: [id number] Catherine MD: Giovanny Ascencio M.D. Measurements Intervals [place] Rate: 116 P: 75 CA: 82 QRS: 113 QRSD: 106 T: 35 QT: 383 QTc: 533 Interpretive Statements SINUS TACHYCARDIA WITH SHORT CA INTERVAL Compared to ECG 04/27/2023 03:15:11 Sinus rhythm no longer present Electronically Signed On 05-01-2024 20:30:09 TIP BANDING MACHINE OPERATOR by Giovanny Ascencio M.D. [email or web address]
[2024-04-30 20:10] VITALS: BP 118/71; PULSE 117; RESP 17; O2SAT 95
[2024-04-30] MEDS: heparin 5,000 unit/mL INJ 1 mL IVP (20:25)
[2024-04-30] MEDS: heparin drip 25,000 UNIT/500 ML PREMIX 37.47 UNIT IV (20:29)
[2024-04-30 20:40] LABS: Partial Thromboplastin Time 27.8 SECONDS (23.9-36.7)
[2024-04-30 21:00] VITALS: BP 118/95; PULSE 111; RESP 24; O2SAT 96
[2024-04-30 21:30] VITALS: BP 135/77; PULSE 107; RESP 26; O2SAT 92
[2024-04-30 21:41] LABS: Lactic Acid level (Lactate) 1.3 mmol/L (0.5-2.2)
[2024-04-30 22:30] VITALS: BP 126/98; PULSE 104; RESP 25; O2SAT 95
== END 2024-04-30 22:56 | disposition short-term general hospital (02) ==
PROVIDERS: Emergency Provider Emergency Medicine; PCP Nurse Practitioner
DX: I26.09 Other pulmonary embolism with acute cor pulmonale (principal); Z11.52 Encounter for screening for COVID-19
CPT/HCPCS: 0241U; 36415; 71045; 71275; 80053; 83605; 83880; 84484; 85025; 85378; 85730; 87040; 93005; 93971; 94640; 99285; J0456; J0696; J1644; J7050

== ENCOUNTER 2025-02-20 18:47 | Emergency (ER) | payer SELFPAY ==
[2025-02-20 18:50] VITALS: BP 153/93; PULSE 89; RESP 18; TEMP 36.3; O2SAT 96; BMI 39.0
--- NOTE | 2025-02-20 19:14 | XRR_ITS ---
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 Views: 3 or more views. COMPARISON: No relevant prior studies available. FINDINGS: Bones/joints: No acute osseous abnormality. No dislocation. Soft tissues: Soft tissue defect along the medial aspect of the tip of the 4th digit with overlying soft tissue swelling. Related to the patient's injury. No definite retained radiodense foreign bodies. XR/XR hand LT min 3V* [id number] IMPRESSION: As above.
--- NOTE | 2025-02-20 19:27 | ED_ITS ---
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 This is left hand, 3rd and 4th finger. Patient has previous injury to the dorsum distal middle finger tendon. He cannot feel the end of his left middle finger, or fully extend, flex. He states there is no change. He has open multiple lacerations on his middle and ring finger of left hand. Tetanus is not up-to-date. Associated symptoms: Denies abdominal pain, back pain, chest pain, chills, fever(s), headache(s), nausea or vomiting Related Data Home Medications ?Medication ?Instructions ?Recorded ?Confirmed cholecalciferol (vitamin D3) 25 25 mcg PO QAM 04/27/23 05/30/24 mcg (1,000 unit) chewable tablet (Vitamin D3) duloxetine 30 mg capsule,delayed 30 mg PO QAM 04/27/23 05/30/24 release fenofibrate nanocrystallized 48 mg 48 mg PO QPM 05/30/24 tablet ropinirole 2 mg tablet 2 mg PO QPM 04/27/23 5 Previous Rx's ?Medication ?Instructions ?Recorded pantoprazole 40 mg tablet,delayed 40 mg PO BID #60 tab s 04/29/23 release (Protonix) levothyroxine 50 mcg tablet 50 mcg PO DAILY #60 tabs 0 06/03/23 rivaroxaban 20 mg tablet (Xarelto) 20 mg PO DAILY #90 tabs 05/30/24 cefdinir 300 mg capsule 300 mg PO BID 10 days #20 ca ps 02/20/25 Allergies Allergy/AdvReac Type Severity Reaction Status Date / Time amoxicillin (From Augmentin) Allergy ALGY-Hives Verified 04/30/24 18:06 clavulanic acid (From Allergy ALGY-Hives Verified 04/30/24 18:06 Augmentin) enoxaparin (From Lovenox) Allergy Unknown Verified 04/30/24 18:06 Review of Systems 2 Const: Denies: fever(s), chills or body aches Eyes: Denies: change in vision or blurry vision ENMT: Denies: throat pain, ear or mastoid pain, nasal congestion or post nasal drip Card: Denies: chest pain Resp: Denies: dyspnea or productive cough GI: Denies: abdominal pain, nausea, vomiting, diarrhea or constipation : Denies: flank pain or dysuria Musc: Reports: extremity pain, extremity swelling and joint pain; Denies: neck pain or back pain Skin/Breast: Denies: rash or pruritus Neuro: Denies: headache(s) Psych: Denies: anxiety or depression Endo: Denies: polyuria Donald/Lymph: Denies: easy bruising All/Imm: Denies: seasonal rhinorrhea PFSH ED 2 PFSH: Medical History (Updated 02/20/25 @ 21:02 by SOREN Ravi) Hypothyroidism Depression with anxiety Hypertriglyceridemia Alcohol abuse Blood clot in leg Hx pulmonary embolism Family History Other Diabetes mellitus, type 2 Social History Smoking and tobacco/nicotine status: never used tobacco/nicotine Alcohol intake: current Physical Exam 2 Const: COMMON NORMALS: no acute distress, average body habitus and patient oriented x3 HENMT: COMMON NORMALS: normocephalic and atraumatic HEAD & SCALP: n ormocephalic and atraumatic Chest: COMMONS NORMALS: normal inspection of the chest and normal palpation of entire chest wall Resp: COMMON NORMALS: normal respiratory effort, No retractions and clear to auscultation bilaterally AUSCULTATION: clear to auscultation bilaterally Cardio: COMMON NORMALS: regular rate and regular rhythm RATE: regular rate RHYTHM: regular rhythm GI: COMMON NORMALS: Normal to inspection, nondistended, normoactive bowel sounds present, Soft to palpation and non-tender PALPATION: Yes Soft to palpation Extremity: EXTREMITY IMAGE (BACK): 1. laceration distal dorsum finger #3 2. Multiple lacerations to fourth finger dorsum, lateral, and palmar Neuro: COMMON NORMALS: patient oriented x3 Psych: COMMON NORMALS: mental status grossly normal, Normal thought process present and cooperative THOUGHT PROCESS: Normal thought process present Procedures Laceration Laceration 1: Site: upper extremity Side (If applicable): left (middle finger) Size (cm): 4 Description: flap and irregular Depth: simple, single layer, involves muscle layer and involves tendon Local Anesthetic: lidocaine 1% Amount of anesthesia used (mL): 3 Pre-repair: wound explored and irrigated extensively (1000 ml ns) Skin layer closed with: nylon (prolene) Size (cm): 4-0 Number of sutures: 2 Technique: simple, interrupted Laceration 2: Site: upper extremity Side (If applicable): left (4th finger) Size (cm): 11 Description: linear, flap and irregular Depth: simple, single layer and involves muscle layer Local Anesthetic: lidocaine 1% Amount of anesthesia used (mL): 3 Pre-repair: wound explored and irrigated extensively (with 1000 ml to fingers #3 and #4) Skin layer closed with: nylon (prolene) Size (cm): 4-0 Number of sutures: 8 Technique: simple, interrupted Course 2 Vital Signs: Vital signs: Vital Signs Temperature 97.4 F L 02/20/25 18:50 Pulse Rate 89 02/20/25 18:50 Respiratory Rate 18 02/20/25 18:50 Blood Pressure 153/93 02/20/25 18:50 Pulse Oximetry 96 02/20/25 18:50 Oxygen Delivery Me thod Room Air 02/20/25 18:50 MDM - Trauma Medical Decision Making On fourth finger, patient required multiple sutures, 4 to the palmar side, 1 into the lateral side, and 4 to the dorsum. The third distal tip finger is high risk for necrosis, and I could see tendon injury. Patient had sensation changes to the distal end of his finger, however he states this is not new, and from previous laceration with tendon injury. Will send to upper extremity specialist. All of his and his 's questions were answered to their satisfaction. Tdap was replaced. Medical Records I reviewed the patient's medical records. Lab Data Radiology Impressions Hand X-Ray 02/20/25 19:14 IMPRESSION: As above. XR interpretation done by ED provider, pending radiology final review Discharge Plan Discharge Patient Disposition: Home Clinical Impression: Laceration of finger, left, with tendon Qualifiers: Encounter type: initial encounter Qualified Code(s): S61.219A - Laceration without foreign body of unspecified finger without damage to nail, initial encounter Laceration of left ring finger Qualifiers: Encounter type: initial encounter Damage to nail status: without damage Foreign body presence: without foreign body Qualified Code(s): S61.215A - Laceration without foreign body of left ring finger without damage to nail, initial encounter Condition: Stable Prescriptions: New cefdinir 300 mg capsule 300 mg PO BID 10 Days Qty: 20 0RF No Action Xarelto 20 mg tablet 20 mg PO DAILY Qty: 90 3RF Rx Instructions: must administer with evening meal levothyroxine 50 mcg tablet 50 mcg PO DAILY Qty: 60 0RF duloxetine 30 mg capsule,delayed release(DR/EC) 30 mg PO QAM Vitamin D3 25 mcg (1,000 unit) Tablet,Chewable 25 mcg PO QAM ropinirole 2 mg tablet 2 mg PO QPM fenofibrate nanocrystallized 48 mg tablet 48 mg PO QPM Protonix 40 mg tablet,delayed release (DR/EC) 40 mg PO BID Qty: 60 0RF Discharge Orders: Discharge ED (Routine); Ordered 02/20/25 Ordered By: Karen Diaz Referrals: Sarah Alejandro FNP [Primary Care Provider, Family Practice] Discharge Diet: Usual diet Discharge Activity: Limit activity as instructed Patient Instructions: Laceration (ED), Patient Portal & Maria D Instructions Activity Restrictions/Additional Instructions: - Apply Vaseline to distal tip of fingers 3 and 4 - You may utilize antibiotic ointment for the first 24 hours, and then just Vaseline. - As we discussed, the 3rd and 4th finger high risk for necrosis with that tissue. Make sure you wash with Dial soap daily or pHisoDerm, and replace the Vaseline gauze. - Cover when you are working - Take antibiotics as prescribed. This is twice daily for full 10 days. - Hand specialist has been made for referral for tendon injury. Case management will get a hold to you for further information - Given the fact you are on antibiotics, utilize active culture yogurt daily, or probiotic to avoid infectious diarrhea - Return to ED if you have fever greater than 100.4 ?F, increasing redness, drainage. Localized redness is typical. - Remove sutures in 10 days. Return to work after removing sutures - Tylenol and ibuprofen for pain Stand Alone Forms: Work/School Release Print Language: Namibian Coding Level of Care Code ED Supervisor for Chg Fwd Documented by User: Arlene Chadwick MD 02/21/25 03:22 HPI - Trauma 2 General: Chief Complaint: Trauma Stated Complaint: Left Hand Finger Grinded Time Seen by Provider: 02/20/25 19:06 Related Data Home Medications ?Medication ?Instructions ?Recorded ?Confirmed cholecalciferol (vitamin D3) 25 25 mcg PO QAM 04/27/23 05/30/24 mcg (1,000 unit) chewable tablet (Vitamin D3) duloxetine 30 mg capsule,delayed 30 mg PO QAM 04/27/23 05/30/24 release fenofibrate nanocrystallized 48 mg 48 mg PO QPM 05/30/24 tablet ropinirole 2 mg tablet 2 mg PO QPM 04/27/23 5 Previous Rx's ?Medication ?Instructions ?Recorded pantoprazole 40 mg tablet,delayed 40 mg PO BID #60 tab s 04/29/23 release (Protonix) levothyroxine 50 mcg tablet 50 mcg PO DAILY #60 tabs 0 06/03/23 rivaroxaban 20 mg tablet (Xarelto) 20 mg PO DAILY #90 tabs 05/30/24 cefdinir 300 mg capsule 300 mg PO BID 10 days #20 ca ps 02/20/25 Allergies Allergy/AdvReac Type Severity Reaction Status Date / Time amoxicillin (From Augmentin) Allergy ALGY-Hives Verified 04/30/24 18:06 clavulanic acid (From Allergy ALGY-Hives Verified 04/30/24 18:06 Augmentin) enoxaparin (From Lovenox) Allergy Unknown Verified 04/30/24 18:06 [facility] ED 2 PFSH: Medical History (Updated 02/20/25 @ 21:02 by SOREN Ravi) Hypothyroidism Depression with anxiety Hypertriglyceridemia Alcohol abuse Blood clot in leg Hx pulmonary embolism Family History Other Diabetes mellitus, type 2 Social History Smoking and tobacco/nicotine status: never used tobacco/nicotine Alcohol intake: current Physical Exam 2 Extremity: EXTREMITY IMAGE (BACK): 1. laceration distal dorsum finger #3 2. Multiple lacerations to fourth finger dorsum, lateral, and palmar Course 2 Vital Signs: Vital signs: Vital Signs Temperature 97.4 F L 02/20/25 18:50 Pulse Rate 89 02/20/25 18:50 Respiratory Rate 18 02/20/25 18:50 Blood Pressure 153/93 02/20/25 18:50 Pulse Oximetry 96 02/20/25 18:50 Oxygen Delivery Me thod Room Air 02/20/25 18:50 MDM - Trauma Medical Decision Making On fourth finger, patient required multiple sutures, 4 to the palmar side, 1 into the lateral side, and 4 to the dorsum. The third distal tip finger is high risk for necrosis, and I could see tendon injury. Patient had sensation changes to the distal end of his finger, however he states this is not new, and from previous laceration with tendon injury. Will send to upper extremity specialist. All of his and his 's questions were answered to their satisfaction. Tdap was replaced. ATTENDING PHYSICIAN ATTESTATION: I, Arlene Chadwick MD, have provided a substantive portion of the care for this patient. I have personally evaluated this patient, performed an independent history, physical exam, imaging, and agree with the plan of care as hereby documented by MARIA D. MDM: Patient is a 49-year-old male with the chief complaint of injury to the 3rd and 4th left digit by a meat packager. DDx includes, but is not limited to, fracture, dislocation, tendon injury, soft tissue injury, vascular injury. He has an old injury to the tendon in the L 3rd digit and has chronic numbness, inability to flex DIP joint. No new deficit of flexion/extension, no severe bleeding. No fx on XR of hand. Agree w/plan of care; will need copious irrigation, soft tissue repair, tetanus update, and DC w/antibiotics given this is a contaminated injury. Will need referral to ortho/hand specialist. Lab Data Radiology Impressions Hand X-Ray 02/20/25 19:14 IMPRESSION: As above. Discharge Plan Discharge Patient Disposition: Home Clinical Impression: Laceration of finger, left, with tendon Qualifiers: Encounter type: initial encounter Qualified Code(s): S61.219A - Laceration without foreign body of unspecified finger without damage to nail, initial encounter Laceration of left ring finger Qualifiers: Encounter type: initial encounter Damage to nail status: without damage Foreign body presence: without foreign body Qualified Code(s): S61.215A - Laceration without foreign body of left ring finger without damage to nail, initial encounter Condition: Stable Prescriptions: New cefdinir 300 mg capsule 300 mg PO BID 10 Days Qty: 20 0RF No Action Xarelto 20 mg tablet 20 mg PO DAILY Qty: 90 3RF Rx Instructions: must administer with evening meal levothyroxine 50 mcg tablet 50 mcg PO DAILY Qty: 60 0RF duloxetine 30 mg capsule,delayed release(DR/EC) 30 mg PO QAM Vitamin D3 25 mcg (1,000 unit) Tablet,Chewable 25 mcg PO QAM ropinirole 2 mg tablet 2 mg PO QPM fenofibrate nanocrystallized 48 mg tablet 48 mg PO QPM Protonix 40 mg tablet,delayed release (DR/EC) 40 mg PO BID Qty: 60 0RF Discharge Orders: Discharge ED (Routine); Ordered 02/20/25 Ordered By: Karen Diaz Referrals: Sarah Alejandro FNP [Primary Care Provider, [facility]] Discharge Diet: Usual diet Discharge Activity: Limit activity as instructed Patient Instructions: Laceration (ED), Patient Portal & Maria D Instructions Activity Restrictions/Additional Instructions: - Apply Vaseline to distal tip of fingers 3 and 4 - You may utilize antibiotic ointment for the first 24 hours, and then just Vaseline. - As we discussed, the 3rd and 4th finger high risk for necrosis with that tissue. Make sure you wash with Dial soap daily or pHisoDerm, and replace the Vaseline gauze. - Cover when you are working - Take antibiotics as prescribed. This is twice daily for full 10 days. - Hand specialist has been made for referral for tendon injury. Case management will get a hold to you for further information - Given the fact you are on antibiotics, utilize active culture yogurt daily, or probiotic to avoid infectious diarrhea - Return to ED if you have fever greater than 100.4 ?F, increasing redness, drainage. Localized redness is typical. - Remove sutures in 10 days. Return to work after removing sutures - Tylenol and ibuprofen for pain Stand Alone Forms: Work/School Release Print Language: Namibian Coding Level of Care Code ED Supervisor for Myles Wright
[2025-02-20] MEDS: tetanus-dipt-pertussis 0.5 mL SDV IM (20:05)
[2025-02-20] MEDS: HYDROcodone-acetaminophen 10-325 mg Tablet 2 TAB PO (21:23)
[2025-02-20] MEDS: HYDROcodone-acetaminophen 10-325 mg Tablet 1 TAB PO (21:23)
[2025-02-20] MEDS: ceFAZolin 1,000 MG in water for injection-sterile 2.5 ML 2.5 MG IM (21:24)
== END 2025-02-20 21:30 | disposition home or self-care (01) ==
PROVIDERS: Emergency Provider Physician Assistant; PCP Nurse Practitioner
DX: S61.215A Laceration without foreign body of left ring finger without damage to nail, initial encounter (principal); S61.213A Laceration without foreign body of left middle finger without damage to nail, initial encounter; W29.0XXA Contact with powered kitchen appliance, initial encounter
CPT/HCPCS: 12044; 13132; 73130; 90471; 90715; 96372; 99284; J0690; J9999